=== PATIENT | female | born 1965 | race African-American/Black ===

== ENCOUNTER 2020-05-30 12:48 | Inpatient (IN) | payer OTHER ==
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
[2020-05-30] MEDS ORDERED: MAGNESIUM CITRATE 300 ML BOTTLE PO PRN (15:47)
[2020-05-30] MEDS ORDERED: MAG HYDROX/AL HYDROX/SIMETH 30 ML UNIT-DOSE CUP PO PRN (15:47)
[2020-05-30] MEDS ORDERED: chlordiazePOXIDE HCL 10 MG CAPSULE PO PRN (15:47)
[2020-05-30] MEDS ORDERED: METHOCARBAMOL 500 MG TABLET PO PRN (15:47)
[2020-05-30] MEDS ORDERED: chlordiazePOXIDE HCL 25 MG CAPSULE PO ONE (15:47)
[2020-05-30] MEDS ORDERED: IBUPROFEN 400 MG TABLET (FP) PO PRN (15:47)
[2020-05-30] MEDS ORDERED: BISMUTH SUBSALICYLATE 524 MG/30 ML UD PO PRN (15:47)
[2020-05-30] MEDS ORDERED: MAGNESIUM HYDROX 2400MG/30ML ORAL SUSPENSION 30 ML CUP PO PRN (15:47)
[2020-05-30] MEDS ORDERED: MENTHOL/PHENOL 1 EACH UD MM PRN (15:47)
[2020-05-30] MEDS ORDERED: ACETAMINOPHEN 325 MG TABLET (FP) PO PRN ×2 (15:47)
[2020-05-30] MEDS ORDERED: hydrOXYzine PAMOATE 25 MG CAPSULE (FP) PO PRN (15:47)
[2020-05-30 16:19] VITALS: BMI 25.9
[2020-05-30] MEDS ORDERED: ONDANSETRON *ODT* 4 MG TABLET SL ONE (17:00)
[2020-05-30] MEDS: MELATONIN 5 MG TABLETS PO SCH (21:48)
[2020-05-30] MEDS: THIAMINE HCL 100 MG TABLET (FP) PO SCH (21:48)
[2020-05-30] MEDS: chlordiazePOXIDE HCL 25 MG CAPSULE PO SCH (21:49)
[2020-05-30] MEDS: MICONAZOLE NITRATE 2% VAGINAL CREAM 45 GM TUBE VG SCH (21:53)
[2020-05-31] MEDS: chlordiazePOXIDE HCL 25 MG CAPSULE PO SCH ×3 (05:42→22:20)
[2020-05-31] MEDS ORDERED: MAGNESIUM HYDROX 2400MG/30ML ORAL SUSPENSION 30 ML CUP PO ONE (09:22)
--- NOTE | 2020-05-31 09:40 | PN ---
S CIWA - CIWA Score Nausea/Vomitin-Mild Nausea/No Vomiting Muscle Tremors: 3 Anxiety: 4-Mod. Anxious/Guarded Agitation: 2 Paroxysmal Sweats: No Perspiration Orientation: 0-Oriented Tacttile Disturbances: 0-None Auditory Disturbances: 0-None Visual Disturbances: 2-Mild Sensitivity Headache: 1-Very Mild CIWA-Ar Total Score: 13 BHS Progress Note (SOAP) Subjective: 54 years old female admitted on 05/30/20 for alcohol withdrawal sx management treating with librium detox regiment reports dry itchy eyes denies vision change denies pain no redness on sclera artificial tears for dry eyes report constipation abdomen soft hypoactive bowel sounds no distension no rebound tenderness MOM 30 ml x 1 Colace 100mg po tid ms Florian states that family currently in grieving will be seen by a psychiatrist for seroquela and trazodone ms Florian prefers to leave the detox on 06/02/20 instead of 06/03/20 as estimated discharge date due to mental health appointment in the community with primary care psychiatrist ms Florian determines to maintain sober "I was sad and depressed" ms Florian is grateful for support resources Objective: 05/31/20 09:40 Vital Signs - 24 hr 05/30/20 05/30/20 05/30/20 16:14 17:10 20:34 Temperature 97.9 F 97.7 F 97.1 F L Pulse Rate 61 57 L 58 L Respiratory 18 18 18 Rate Blood Pressure 124/79 130/86 123/82 O2 Sat by Pulse 98 Oximetry (%) 05/31/20 05/31/20 05:26 08:34 Temperature 98.2 F 97.1 F L Pulse Rate 57 L 66 Respiratory 18 18 Rate Blood Pressure 109/78 117/82 O2 Sat by Pulse 98 Oximetry (%) 05/31/20 09:40 lab pending Assessment: 05/31/20 09:40 alcohol withdrawal 05/31/20 09:40 grieving for of family Plan: librium regiment mental health specialist referral
[2020-05-31] MEDS: ARTIFICIAL TEARS (POLYVINYL ALCOHOL) OPTH DROPS OU SCH ×4 (10:11→22:21)
[2020-05-31] MEDS: PRENATAL VITAMINS W/ FOLIC ACID TABLET (FP) PO SCH (10:12)
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
[2020-05-31 11:50] LABS: HEMATOCRIT 36.6 % (32.4-45.2); HEMOGLOBIN 11.8 GM/dL (10.7-15.3); MCH 26.1 pg (25.7-33.7); MCHC 32.2 g/dl (32.0-36.0); MEAN CELL VOLUME 81.1 fl (80-96); MEAN PLT VOLUME 8.4 fl (7.5-11.1); PLATELET COUNT 274 K/MM3 (134-434); RBC 4.52 M/mm3 (3.60-5.2); RDW 15.3 % (11.6-15.6); WHITE BLOOD COUNT 5.8 K/mm3 (4.0-10.0)
[2020-05-31 11:56] LABS: ALBUMIN 3.1 g/dl (3.4-5.0); BILIRUBIN,TOTAL 0.4 mg/dL (0.2-1); BLOOD UREA NITROGEN 15.6 mg/dL (7-18); CREATININE 0.7 mg/dL (0.55-1.3); POTASSIUM 4.5 mmol/L (3.5-5.1); TOT PROT 6.1 g/dl (6.4-8.2)
[2020-05-31] MEDS: DOCUSATE SODIUM 100 MG CAPSULE (FP) PO SCH ×2 (14:25→22:20)
[2020-05-31] MEDS: MELATONIN 5 MG TABLETS PO SCH (22:22)
[2020-05-31] MEDS: THIAMINE HCL 100 MG TABLET (FP) PO SCH (22:22)
[2020-05-31] MEDS: MICONAZOLE NITRATE 2% VAGINAL CREAM 45 GM TUBE VG SCH (22:23)
[2020-06-01] MEDS ORDERED: chlordiazePOXIDE 5 MG CAPSULE PO SCH (05:00)
[2020-06-01] MEDS: chlordiazePOXIDE HCL 10 MG CAPSULE PO SCH ×2 (06:21→17:28)
[2020-06-01] MEDS: DOCUSATE SODIUM 100 MG CAPSULE (FP) PO SCH ×3 (06:21→22:27)
[2020-06-01] MEDS: ARTIFICIAL TEARS (POLYVINYL ALCOHOL) OPTH DROPS OU SCH ×4 (10:30→22:27)
[2020-06-01] MEDS: PRENATAL VITAMINS W/ FOLIC ACID TABLET (FP) PO SCH (10:30)
--- NOTE | 2020-06-01 11:39 | PN ---
S CIWA - CIWA Score Nausea/Vomitin-No Nausea/No Vomiting Muscle Tremors: 2 Anxiety: 2 Agitation: 0-Normal Activity Paroxysmal Sweats: 1-Minimal Palms Moist Orientation: 0-Oriented Tacttile Disturbances: 1-Very Mild Itch/Numbness Auditory Disturbances: 0-None Visual Disturbances: 2-Mild Sensitivity Headache: 0-None Present CIWA-Ar Total Score: 8 BHS Progress Note (SOAP) Subjective: 54 years old female admitted on 05/30/20 for alcohol withdrawal sx management treating with librium detox regiment feeling better today less tremor mild anxiety discussing aftercare with staff that ms estrella will go to her mental health a ppointment and return to patient [facility] admission Objective: 06/01/20 11:37 Vital Signs - 24 hr 05/31/20 05/31/20 05/31/20 12:37 13:52 16:30 Temperature 98.4 F 97.5 F L Pulse Rate 62 72 65 Respiratory 18 18 Rate Blood Pressure 85/56 L 110/81 124/75 O2 Sat by Pulse 95 Oximetry (%) 05/31/20 06/01/20 06/01/20 20:40 06:41 08:36 Temperature 97.7 F 97.7 F 97.1 F L Pulse Rate 65 92 H 84 Respiratory 17 18 18 Rate Blood Pressure 110/74 108/77 91/64 O2 Sat by Pulse 95 96 Oximetry (%) Laboratory Tests 05/30/20 05/30/20 05/31/20 14:14 16:46 08:00 WBC RBC Hgb Hct MCV MCH MCHC RDW Plt Count MPV Sodium Potassium Chloride Carbon Dioxide Anion Gap BUN Creatinine Est GFR (CKD-EPI)AfAm Est GFR (CKD-EPI)NonAf Random Glucose Calcium Total Bilirubin AST ALT Alkaline Phosphatase Total Protein Albumin POC Urine HCG, Qual Negative Syphilis Serology Reactive A* RPR Titer COVID-19 (QUITA) Not detected 05/31/20 05/31/20 05/31/20 08:00 08:00 08:00 WBC 5.8 RBC 4.52 Hgb 11.8 Hct 36.6 MCV 81.1 MCH 26.1 MCHC 32.2 RDW 15.3 Plt Count 274 MPV 8.4 Sodium 140 Potassium 4.5 Chloride 107 Carbon Dioxide 29 Anion Gap 4 L BUN 15.6 Creatinine 0.7 Est GFR (CKD-EPI)AfAm 115.45 Est GFR (CKD-EPI)NonAf 99.62 Random Glucose 84 Calcium 9.0 Total Bilirubin 0.4 AST 16 ALT 16 Alkaline Phosphatase 58 Total Protein 6.1 L Albumin 3.1 L POC Urine HCG, Qual Syphilis Serology RPR Titer Reactive 1:1 H COVID-19 (QUITA) 06/01/20 11:38 lab noted hiv trich gonorr chlym pending Assessment: 06/01/20 11:39 alcohol withdrawal syphilis contact treated Plan: librium regiment std pending
[2020-06-01] MEDS: MICONAZOLE NITRATE 2% VAGINAL CREAM 45 GM TUBE VG SCH (22:27)
[2020-06-01] MEDS: THIAMINE HCL 100 MG TABLET (FP) PO SCH (22:27)
[2020-06-01] MEDS: MELATONIN 5 MG TABLETS PO SCH (22:28)
[2020-06-02] MEDS ORDERED: chlordiazePOXIDE HCL 10 MG CAPSULE PO PRN
[2020-06-02] MEDS ORDERED: chlordiazePOXIDE HCL 10 MG CAPSULE PO SCH (05:00)
[2020-06-02] MEDS ORDERED: chlordiazePOXIDE HCL 10 MG CAPSULE PO ONE (05:00)
[2020-06-02] MEDS: DOCUSATE SODIUM 100 MG CAPSULE (FP) PO SCH (05:31)
[2020-06-02 05:44] VITALS: BP 116/65; PULSE 60; TEMP 97.7
--- NOTE | 2020-06-02 09:08 | DS ---
[facility] Detox Discharge Summary Admission Date: 05/30/20 Discharge Date: 06/02/20 - History Present History: Alcohol Dependence Additional Comments: 54 years old female admitted on 05/30/20 for alcohol withdrawal sx management treating with librium detox regiment feeling better today prefers to leave a day early as estimated discharge date of 06/03/20 ms estrella has appointment tomorrow with her mental health provider and psychotropic medication will be discussed ms estrella determines to maintain sober will follow up with aftercare alert oriented x 3 speech clearly coherently ambulating steady gaits respiratory clear lung sounds bilaterally on auscultation abdomen soft no rebound tenderness extremities full range of motion Pertinent Past History: time for discharge 45 minutes treatment team met with ms estrella to discuss the benefit of librium completion - Physical Exam Results Vital Signs: Vital Signs Temperature 97.7 F 06/02/20 05:43 Pulse Rate 60 06/02/20 05:43 Respiratory Rate 18 06/02/20 05:43 Blood Pressure 116/65 06/02/20 05:43 O2 Sat by Pulse Oximetry (%) 98 06/02/20 05:43 Pertinent Admission Physical Exam Findings: alcohol withdrawal Laboratory Tests 05/30/20 05/30/20 05/31/20 14:14 16:46 08:00 WBC RBC Hgb Hct MCV MCH MCHC RDW Plt Count MPV Sodium Potassium Chloride Carbon Dioxide Anion Gap BUN Creatinine Est GFR (CKD-EPI)AfAm Est GFR (CKD-EPI)NonAf Random Glucose Calcium Total Bilirubin AST ALT Alkaline Phosphatase Total Protein Albumin POC Urine HCG, Qual Negative Syphilis Serology Reactive A* RPR Titer COVID-19 (QUITA) Not detected HIV Ag/Ab Combo Qual 05/31/20 05/31/20 05/31/20 08:00 08:00 08:00 WBC 5.8 RBC 4.52 Hgb 11.8 Hct 36.6 MCV 81.1 MCH 26.1 MCHC 32.2 RDW 15.3 Plt Count 274 MPV 8.4 Sodium 140 Potassium 4.5 Chloride 107 Carbon Dioxide 29 Anion Gap 4 L BUN 15.6 Creatinine 0.7 Est GFR (CKD-EPI)AfAm 115.45 Est GFR (CKD-EPI)NonAf 99.62 Random Glucose 84 Calcium 9.0 Total Bilirubin 0.4 AST 16 ALT 16 Alkaline Phosphatase 58 Total Protein 6.1 L Albumin 3.1 L POC Urine HCG, Qual Syphilis Serology RPR Titer Reactive 1:1 H COVID-19 (QUITA) HIV Ag/Ab Combo Qual 06/01/20 08:00 WBC RBC Hgb Hct MCV MCH MCHC RDW Plt Count MPV Sodium Potassium Chloride Carbon Dioxide Anion Gap BUN Creatinine Est GFR (CKD-EPI)AfAm Est GFR (CKD-EPI)NonAf Random Glucose Calcium Total Bilirubin AST ALT Alkaline Phosphatase Total Protein Albumin POC Urine HCG, Qual Syphilis Serology RPR Titer COVID-19 (QUITA) HIV Ag/Ab Combo Qual Negative lab noted syphilis contacted treated - Treatment Hospital Course: Detox Protocol Followed, Detoxed Safely, Responded well, Discharged Condition Good, Rehab Referral Accepted Patient has Accepted a Re[facility] Referral to: [facility] - Medication Discharge Medications: Ambulatory Orders Cod Liver Oil 1 each PO DAILY 05/30/20 Cyanocobalamin (Vitamin B-12) [Vitamin B-12] 1,000 mcg PO DAILY 05/30/20 Folic Acid - 1 mg PO DAILY 05/30/20 Multivitamins [Multivit ([facility] Formulary)] 1 tab PO DAILY 05/30/20 - Diagnosis (1) Grieving Status: Acute (2) Alcohol dependence with uncomplicated withdrawal Status: Acute (3) Syphilis contact, treated Status: Chronic - AMA Did Patient Leave Against Medical Advice: No CIWA Score - CIWA Score Nausea/Vomitin-No Nausea/No Vomiting Muscle Tremors: 2 Anxiety: 1-Mildly Anxious Agitation: 0-Normal Activity Paroxysmal Sweats: No Perspiration Orientation: 0-Oriented Tacttile Disturbances: 0-None Auditory Disturbances: 0-None Visual Disturbances: 1-Very Mild Sensitivity Headache: 0-None Present CIWA-Ar Total Score: 4
[2020-06-03] MEDS ORDERED: chlordiazePOXIDE HCL 10 MG CAPSULE PO ONE (05:00)
== END 2020-06-02 08:38 | disposition home or self-care (01) | DRG 774 ==
LOC: EDSEX 12:48 → YASAS 12:48 → Y3N 16:42
PROVIDERS: ADMIT Allergy & Immunology; ATTEND Allergy & Immunology
PROC: HZ2ZZZZ Detoxification Services for Substance Abuse Treatment (ICD-10-PCS; principal; 2020-05-30)
DX: F10.230 Alcohol dependence with withdrawal, uncomplicated (principal); F14.20 Cocaine dependence, uncomplicated; F43.21 Adjustment disorder with depressed mood; F43.10 Post-traumatic stress disorder, unspecified; B37.3 Candidiasis of vulva and vagina; K21.9 Gastro-esophageal reflux disease without esophagitis; K59.00 Constipation, unspecified; H04.123 Dry eye syndrome of bilateral lacrimal glands; Z20.2 Contact with and (suspected) exposure to infections with a predominantly sexual mode of transmission; Z63.4 Disappearance and death of family member; Z91.018 Allergy to other foods; Z91.19 Patient's noncompliance with other medical treatment and regimen; Z87.828 Personal history of other (healed) physical injury and trauma; Z98.890 Other specified postprocedural states
CPT/HCPCS: 36415; 80053; 81025; 85027; 86593; 86780; 87389; Q0162; U0003

== ENCOUNTER 2020-07-25 11:21 | Inpatient (IN) | payer OTHER ==
--- OUTSIDE RECORDS SUMMARY | 2020-07-25 11:25 | XMS ---
:1965 Author Organization [facility] Care Team Providers Name Role Phone Jennifer Unavailable MD Tiffanie Unavailable MD Tiffanie Unavailable MD Tiffanie Unavailable MD Tiffanie Unavailable MD Tiffanie Unavailable MD Tiffanie Unavailable MD Tiffanie Unavailable MD Tiffanie Unavailable UZAIR Unavailable Unavailable KUN Unavailable Unavailable Davi Unavailable CORINA (SW DISTANCE EDUCATION COORDINATOR) Unavailable Unavailable Cummings Unavailable Re-disclosure Warning The records that you are about to access may contain information from federally- assisted alcohol or drug abuse programs. If such information is present, then the following federally mandated warning applies: This information has been disclosed to you from records protected by federal confidentiality rules (42 CFR part 2). The federal rules prohibit you from making any further disclosure of this information unless further disclosure is expressly permitted by the written consent of the person to whom it pertains or as otherwise permitted by 42 CFR part 2. A general authorization for the release of medical or other information is NOT sufficient for this purpose. The Federal rules restrict any use of the information to criminally investigate or prosecute any alcohol or drug abuse patient.The records that you are about to access may contain highly sensitive health information, the redisclosure of which is protected by Article 27-F of the [facility] Public Health law. If you continue you may haveaccess to information: Regarding HIV / AIDS; Provided by facilities licensed or operated by the [facility] Office of Mental Health; or Provided by the [facility] Office for People With Developmental Disabilities. If such information is present, then the following [facility] mandated warning applies: This information has been disclosed to you from confidential records which are protected by state law. State law prohibits you from making any further disclosure of this information without the specific written consent of the person to whom it pertains, or as otherwise permitted by law. Any unauthorized further disclosure in violation of state law may result in a fine or group home sentence or both. A general authorization for the release of medical or other information is NOT sufficient authorization for further disclosure. Encounters Encounter Providers Location Date Indications Data Source(s ) Outpatient Attender: Serena 06/04/2020 [facility] 02:52:15 PM [facility] Patient admitted. Outpatient Attender: ANAI TRISTAN 06/02/2020 10:39:17 AM [facility] Patient admitted. Outpatient Attender: Mary 02/25/2020 01:08:55 PM [facility] Patient admitted. Outpatient Attender: Mary 02/23/2020 04:29:05 PM [facility] Patient admitted. Outpatient Attender: ROSALIO ARRIAGA 11/08/2018 02:15:12 PM [facility] Outpatient Attender: Lia 09/27/2018 06:47:23 PM The [facility] Outpatient Attender: ROSALIO ARRIAGA 09/22/2018 10:03:08 AM [facility] Outpatient Attender: Lia 08/14/2018 11:20:29 AM [facility] Outpatient Attender: Elma Cummings 08/14/2018 11:06:27 AM [facility] Outpatient Attender: Elma Cummings 08/07/2018 11:00:43 AM [facility] Outpatient Attender: Lia 07/23/2018 04:56:34 PM [facility] Outpatient Attender: Lia 07/19/2018 06:35:52 PM [facility] Outpatient Attender: Lia 07/19/2018 12:00:00 AM [facility] Outpatient Attender: Lia 07/14/2018 12:00:00 AM [facility] Outpatient Attender: CHAN DUNNE 07/05/2018 06:46:38 PM [facility] Medications Medication Brand Start Product Dose Route [facility] Indications Reaction Description Data Name Date Form Instructions Instructions Source(s) quetiapine QUEtia 50 mg Oral active PTSD Take ON E The 50 MG Oral pine 2018 (post-trauma tablet (50 [place] Tablet Fumara 12:00: tic stress mg total ) by For Family QUEtiapine te 00 AM disorder) mouth [facility] Fumarate (SEROQ EDT 1 tab daily (SEROQUEL) UEL) and 2 tabs 50 MG Oral 50 MG nightly Tab Oral Tab PTSD (post-traumatic stress disorder) Take ONE tablet (50 mg total) by mouth d aily 1 tab daily and 2 tabs nightly Trazodone traZODone 07/23/2018 100 Oral active PTSD Ta ke ONE The Hydrochloride 100 MG 12:00:00 AM mg (post-trauma tic tablet [place] 100 MG Oral Oral EDT stress disorder) ( 100 mg For Family Tablet tablet total) Health traZODone 100 by mouth MG Oral tablet nightly PTSD (post-traumatic stress disorder) quetiapine QUEtiapine 07/23/2018 100 Oral active PTSD Take ONE The 100 MG Oral Fumarate 12:00:00 AM mg (post-trauma tic tablet [place] Tablet (SEROQUEL) EDT stress disorder) (100 mg For Family QUEtiapine 100 MG Oral total) Health Fumarate Tab by mouth (SEROQUEL) nightly 100 MG Oral Tab PTSD (post-traumatic stress disorder) Take ONE tablet (100 mg total) by mouth nightly Trazodone traZODone 04/14/2018 100 Oral aborted PTSD T ryan ONE The Hydrochloride 100 MG 12:00:00 AM mg (post-trauma tic tablet [place] 100 MG Oral Oral EDT stress disorder) ( 100 mg For Family Tablet tablet total) Health traZODone 100 by mouth MG Oral tablet nightly PTSD (post-traumatic stress disorder) quetiapine QUEtiapine 04/14/2018 100 Oral active PTSD Take ONE The 100 MG Oral Fumarate 12:00:00 AM mg (post-trauma tic tablet [place] Tablet (SEROQUEL) EDT stress disorder) (100 mg For Family QUEtiapine 100 MG Oral total) Health Fumarate Tab by mouth (SEROQUEL) nightly 100 MG Oral Tab PTSD (post-traumatic stress disorder) quetiapine QUEtiapine 04/14/2018 50 Oral active PTSD Take ONE The 50 MG Oral Fumarate 12:00:00 AM mg (post-traumat ic tablet [place] Tablet (SEROQUEL) EDT stress disorder) (50 mg For Family QUEtiapine 50 MG Oral total) H ealth Fumarate Tab by mouth (SEROQUEL) daily 1 50 MG Oral tab Tab daily and 2 tabs nightly PTSD (post-traumatic stress disorder) Insurance Providers Payer name Policy type Policy ID Covered Covered democrat's Policy P estiven / Coverage democrat ID relationship to Mota Inf ormation type mota [employer] [id number] SP [id number] C [employer] Medicaid Mgd 156 156 Care SELF PAY/NO [id number] Self [id number] [place] MEDICAID [place] [id number] Self [id number] [employer] [id number] Self [id number] [employer] Medicaid Mgd 156 156 Care Problems, Conditions, and Diagnoses Code Display Name Description Problem Type Effective Data Sour ce(s) Dates F10.20 Alcohol use Alcohol use [id number] 04/16/2016 The [facility] e disorder, moderate disorder, 12:00:00 AM For F amily moderate EDT Health F43.10 PTSD PTSD [id number] 04/21/2015 The [place] (post-traumatic (post-traumatic 12:00:00 AM For Family stress disorder) stress disorder) EDT He alth Z11.59 Encounter for Encounter for Diagnosis 06/04/2020 The [facility] [employer] screening for screening for 02:52:15 PM For Fam [facility] other viral other viral EDT Health diseases diseases Transitional Care Transitional Care Diagnosis 06/02/2020 The [place] Management Management 10:39:17 AM For Family Outreach Outreach EDT Health RAP Attempted RAP Attempted Diagnosis 02/25/2020 The [employer] Outreach Outreach 01:08:55 PM For Family EDT Health Outreach Outreach Diagnosis 02/23/2020 The [place] 04:29:05 PM For Family EDT Health 973 Case Closure Case Closure Diagnosis 11/08/2018 [facility] Follow Up Follow Up 02:15:12 PM For Family EST Health 1277 Call During Clinic Call During Diagnosis 09/27/2018 The I [facility]stitute Hours Clinic Hours 06:47:23 PM For Family EST Health 1251 Reschedule Reschedule Diagnosis 09/22/2018 The [place] Appointment Appointment 10:03:08 AM For Family EST Health 476 Transfer Note Transfer Note Diagnosis 08/14/2018 The Inst itute 11:20:29 AM For Family EDT Health 460 Outreach Outreach Diagnosis 07/19/2018 The [place] 06:35:52 PM For Family EDT Health 41 Emergency Room Emergency Room Diagnosis 07/05/2018 The In stitute Visit Follow Up Visit Follow Up 06:46:38 PM For Family EDT Health F43.10 Post-traumatic Post-traumatic Diagnosis 04/21/2015 The [facility] stress disorder, stress disorder, 06:41:11 PM F or Family unspecified unspecified EDT Health 309.81 POSTTRAUMATIC PTSD Diagnosis The [facility] STRESS DISORDER (post-traumatic For Family stress disorder) Health 309.81 POSTTRAUMATIC PTSD Diagnosis The [facility] STRESS DISORDER (post-traumatic For Family stress disorder) Health 309.81 POSTTRAUMATIC PTSD Diagnosis The [facility] STRESS DISORDER (post-traumatic For Family stress disorder) Health 309.81 POSTTRAUMATIC PTSD Diagnosis The [facility] STRESS DISORDER (post-traumatic For Family stress disorder) Health [id number] PTSD Diagnosis The [place] (post-traumatic For Famil y stress disorder) Health [id number] PTSD Diagnosis The [place] (post-traumatic For Famil y stress disorder) Health Surgeries/Procedures Procedure Description Date Indications Data Source(s) NOVEL CORONAVIRUS NOVEL CORONAVIRUS Routine 05/30/2020 0 05/30/2020 The COVID-19 COVID-19 12:00:00 AM In stitute NASOPHARYNGEAL NASOPHARYNGEAL EDT For Family Health NOVEL CORONAVIRUS COVID-19 NOVEL CORONAVIRUS COVID-19 The [place] For NASOPHARYNGEAL NASOPHARYNGEAL Family Heal th Results ID Date Data Source [id number] 05/30/2020 04:46:00 PM EDT [facility] Name Value Range Interpretation Description Data Sup porting Code Source(s) Document(s ) SARS [facility] coronavirus 2 RNA This lab was ordered by [facility] and reported by [facility]. Procedure Social History Code Duration Value Status Description Data Source(s ) Alcohol intake 04/12/2016 Not Asked completed The [facility] For 12:00:00 AM EDT Family He alth Smoking 04/12/2016 Never smoker completed Never smoker [facility] For 12:00:00 AM EDT Family He alth Tobacco smoking 04/12/2016 Never smoker completed Never smoker The nstitute For status NHIS 12:00:00 AM EDT Family H ealth Sex assigned at Female Female The [facility] Exposure to No / Unsure In the last month, No / Unsure The [place] For SARS-CoV-2 (event) have you been in Family Health contact with someone who was confirmed or suspected to have Coronavirus / COVID-19? Sex assigned at Female Female The [facility] Patient Treatment Plan of Care Planned Activity Planned Date Details Description Data Source (s) quetiapine 50 MG Oral 07/23/2018 12:00:00 The [place] For Tablet AM [facility] quetiapine 100 MG Oral 07/23/2018 12:00:00 [facility] Tablet AM [facility] Trazodone Hydrochloride 07/23/2018 12:00:00 The [place] For 100 MG Oral Tablet AM [facility] Family He alth quetiapine 50 MG Oral 04/14/2018 12:00:00 The [place] For Tablet AM [facility] quetiapine 100 MG Oral 04/14/2018 12:00:00 The [place] For Tablet AM [facility] Trazodone Hydrochloride 04/14/2018 12:00:00 The [place] For 100 MG Oral Tablet AM EDT Family He alth
--- NOTE | 2020-07-25 12:16 | BHS.RME ---
Substance Use & Tx History - Substance Use History Alcohol Substance amount: 2 6 packs of beer, 1 L liqour Frequency of use: Daily Substance route: Oral Date of Last Use: 07/24/20 - Last Treatment Date of last treatment: 05/30/2020 Where was last treatment: Detox Physical/Psych/Mental Status - Behavior General Behavior: Increased activity (restlessness, agitation) Eye Contact: Excessive Other Behaviors: Mannerisms - Cooperativeness Cooperativeness: Cooperative - Thinking Thought Processes: Tight Thought content: Future oriented - Physical Health Problems Is patient presently having any pain?: Yes (back and leg) Does patient presently have any injuries (include location): No Does patient currently have a fever: No CIWA Nausea/Vomitin-Mild Nausea/No Vomiting Muscle Tremors: 2 Anxiety: 2 Agitation: 2 Paroxysmal Sweats: 2 Orientation: 0-Oriented Tacttile Disturbances: 1-Very Mild Itch/Numbness Auditory Disturbances: 0-None Visual Disturbances: 0-None Headache: 3-Moderate CIWA-Ar Total Score: 13
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
[2020-07-25] MEDS ORDERED: ONDANSETRON *ODT* 4 MG TABLET SL PRN (13:19)
[2020-07-25] MEDS ORDERED: BISMUTH SUBSALICYLATE 524 MG/30 ML UD PO PRN (13:19)
[2020-07-25] MEDS ORDERED: IBUPROFEN 400 MG TABLET (FP) PO PRN (13:19)
[2020-07-25] MEDS ORDERED: ACETAMINOPHEN 325 MG TABLET (FP) PO PRN ×2 (13:19)
[2020-07-25] MEDS ORDERED: chlordiazePOXIDE HCL 25 MG CAPSULE PO PRN (13:19)
[2020-07-25] MEDS ORDERED: hydrOXYzine PAMOATE 25 MG CAPSULE (FP) PO PRN (13:19)
[2020-07-25] MEDS ORDERED: METHOCARBAMOL 500 MG TABLET PO PRN (13:19)
[2020-07-25] MEDS ORDERED: MENTHOL/PHENOL 1 EACH UD MM PRN (13:19)
[2020-07-25] MEDS ORDERED: MAGNESIUM HYDROX 2400MG/30ML ORAL SUSPENSION 30 ML CUP PO PRN (13:19)
[2020-07-25] MEDS ORDERED: MAGNESIUM CITRATE 300 ML BOTTLE PO PRN (13:19)
--- OUTSIDE RECORDS SUMMARY | 2020-07-25 13:48 | XMS ---
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 If you continue you may haveaccess to information: Regarding HIV / AIDS; Provided by facilities licensed or operated by the [facility] Office of Mental Health; or Provided by the [facility] Office for People With Developmental Disabilities. If such information is present, then the following [facility] mandated warning applies: This information has [...] law may result in a fine or half-way sentence or both. A general authorization for the release of medical or other information is NOT sufficient authorization for further disclosure. Encounters Encounter Providers Location Date Indications Data Source(s ) Outpatient Attender: Serena 06/04/2020 The [facility] 02:52:15 PM [facility] Patient admitted. Outpatient Attender: ANAI TRISTAN 06/02/2020 10:39:[address] [facility] Patient admitted. Outpatient Attender: Mary 02/25/2020 01:08:55 PM The [facility] Patient admitted. Outpatient Attender: Mary 02/23/2020 04:29:05 PM The [facility] Patient admitted. Outpatient Attender: ROSALIO ARRIAGA 11/08/2018 02:15:12 PM The [facility] Outpatient Attender: Lia 09/27/2018 06:47:23 PM The [facility]ated [facility] Outpatient Attender: ROSALIO ARRIAGA 09/22/2018 10:03:08 AM The [facility] Outpatient Attender: Lia 08/14/2018 11:20:29 AM The [facility] Outpatient Attender: Elma Cummings 08/14/2018 11:06:[address] [facility] Outpatient Attender: Elma Cummings 08/07/2018 11:00:[address] [facility] Outpatient Attender: Lia 07/23/2018 04:56:34 PM The [facility] Outpatient Attender: Lia 07/19/2018 06:35:52 PM The [facility] Outpatient Attender: Lia 07/19/2018 12:00:00 AM The [facility] Outpatient Attender: Lia 07/14/2018 12:00:00 AM The [facility] Outpatient Attender: CHAN DUNNE 07/05/2018 06:46:[address] [facility] Medications Medication Brand Start Product Dose Route Administrative Pharmacy [facility] Indications Reaction Description Data Name Date Form Instructions Instructions Source(s) quetiapine QUEtia 50 mg Oral active PTSD Take ON E The 50 MG Oral pine 2018 (post-trauma tablet (50 [place] Tablet Fumara 12:00: tic stress mg total [...] MG 12:00:00 AM mg (post-trauma tic tablet [place] 100 MG Oral Oral EDT stress disorder) ( 100 mg For Family Tablet tablet total) Health traZODone 100 by mouth MG Oral tablet nightly PTSD (post-traumatic stress disorder) quetiapine QUEtiapine 07/23/2018 100 Oral active PTSD Take ONE The 100 MG Oral Fumarate 12:00:00 AM mg (post-trauma tic tablet [place] Tablet (SEROQUEL) EDT stress disorder) (100 mg For Family QUEtiapine 100 MG Oral total) Health Fumarate Tab by mouth (SEROQUEL) nightly 100 MG Oral Tab PTSD (post-traumatic stress disorder) Take ONE tablet (100 mg total) by mouth nightly Trazodone traZODone 04/14/2018 100 Oral aborted PTSD T ryan ONE The Hydrochloride 100 MG 12:00:00 AM mg (post-trauma tic tablet [place] 100 MG Oral Oral EDT stress disorder) ( 100 mg For Family Tablet tablet total) Health traZODone 100 by mouth MG Oral tablet nightly PTSD (post-traumatic stress disorder) quetiapine QUEtiapine 04/14/2018 100 Oral active PTSD Take ONE The 100 MG Oral Fumarate 12:00:00 AM mg (post-trauma tic tablet [place] Tablet (SEROQUEL) EDT stress disorder) (100 mg For Family QUEtiapine 100 MG Oral total) Health Fumarate Tab by mouth (SEROQUEL) nightly 100 MG Oral Tab PTSD (post-traumatic stress disorder) quetiapine QUEtiapine 04/14/2018 50 Oral active PTSD Take ONE The 50 MG Oral Fumarate 12:00:00 AM mg (post-traumat ic tablet [place] Tablet (SEROQUEL) EDT stress disorder) (50 mg For Family QUEtiapine 50 MG Oral total) H ealth Fumarate Tab by mouth (SEROQUEL) daily 1 50 MG Oral tab Tab daily and 2 tabs nightly PTSD (post-traumatic stress disorder) Insurance Providers Payer name Policy type Policy ID Covered Covered libertarian's Policy P estiven / Coverage libertarian ID relationship to Mota Inf ormation type mota [employer] [id number] SP [id number] C [employer] Medicaid Mgd 156 156 Care SELF PAY/NO [id number] Self [id number] SLIDE MEDICAID [place] [id number] Self [id number] [employer] [id number] Self [id number] [employer] Medicaid Mgd 156 156 Care Problems, Conditions, and Diagnoses Code Display Name Description Problem Type Effective Data Sour ce(s) Dates F10.20 Alcohol use Alcohol use [id number] 04/16/2016 The [facility] e disorder, moderate disorder, 12:00:00 AM For F amily moderate EDT Health F43.10 PTSD PTSD [id number] 04/21/2015 The [place] (post-traumatic (post-traumatic 12:00:00 AM For Family stress disorder) stress disorder) EDT He alth Z11.59 Encounter for Encounter for Diagnosis 06/04/2020 The [facility] [employer] screening for screening for 02:52:15 PM For Fam bernabe other viral other viral EDT Health diseases diseases Transitional Care Transitional Care Diagnosis 06/02/2020 The [place] Management Management 10:39:17 AM For Family Outreach Outreach EDT Health RAP Attempted RAP Attempted Diagnosis 02/25/2020 The [employer] Outreach Outreach 01:08:55 PM For Family EDT Health Outreach Outreach Diagnosis 02/23/2020 The [place] 04:29:05 PM For Family EDT Health 973 Case Closure Case Closure Diagnosis 11/08/2018 The [facility] Follow Up Follow Up 02:15:12 PM For Family EST Health 1277 Call During Clinic Call During Diagnosis 09/27/2018 The I nstitute Hours Clinic Hours 06:47:23 PM For Family EST Health 1251 Reschedule Reschedule Diagnosis 09/22/2018 The [place] Appointment Appointment 10:03:08 AM For Family EST Health 476 Transfer Note Transfer Note Diagnosis 08/14/2018 The Inst itute 11:20:29 AM For Family EDT Health 460 Outreach Outreach Diagnosis 07/19/2018 The [place] 06:35:52 PM For Family EDT Health 41 Emergency Room Emergency Room Diagnosis 07/05/2018 The In stitute Visit Follow Up Visit Follow Up 06:46:38 PM For Family EDT Health F43.10 Post-traumatic Post-traumatic Diagnosis 04/21/2015 The [facility] stress disorder, stress disorder, 06:41:11 PM F [...] DISORDER (post-traumatic For Family stress disorder) Health [id number] PTSD Diagnosis The [place] (post-traumatic For Famil y stress disorder) Health [id number] PTSD Diagnosis The [place] (post-traumatic For Famil y stress disorder) Health Surgeries/Procedures Procedure Description Date Indications Data Source(s) NOVEL CORONAVIRUS NOVEL CORONAVIRUS Routine 05/30/2020 0 05/30/2020 The COVID-19 COVID-19 12:00:00 AM In stitute NASOPHARYNGEAL NASOPHARYNGEAL EDT For Family Health NOVEL CORONAVIRUS COVID-19 NOVEL CORONAVIRUS COVID-19 The [place] For NASOPHARYNGEAL NASOPHARYNGEAL Family Heal th Results ID Date Data Source [id number] 05/30/2020 04:46:00 PM EDT [facility] Name Value Range Interpretation Description Data Sup porting Code Source(s) Document(s ) SARS [facility] coronavirus 2 RNA This lab was ordered by [facility] and reported by [facility]. Procedure Social History Code Duration Value Status Description Data Source(s ) Alcohol intake 04/12/2016 Not Asked completed The [facility] For 12:00:00 AM EDT Family He alth Smoking 04/12/2016 Never smoker completed Never smoker The [facility] For 12:00:00 AM EDT Family He alth Tobacco smoking 04/12/2016 Never smoker completed Never smoker The nstitute For status NHIS 12:00:00 AM EDT Family H ealth Sex assigned at Female Female The [facility] Exposure to No / Unsure In the last month, No / Unsure The [place] For SARS-CoV-2 (event) have you been in Family Health contact with someone who was confirmed or suspected to have Coronavirus / COVID-19? Sex assigned at Female Female The [facility] Patient Treatment Plan of Care Planned Activity Planned Date Details Description Data Source (s) quetiapine 50 MG Oral 07/23/2018 12:00:00 The [place] For Tablet AM [facility] quetiapine 100 MG Oral 07/23/2018 12:00:00 [facility] Tablet AM [facility] Trazodone Hydrochloride 07/23/2018 12:00:00 The [place] For 100 MG Oral Tablet AM [facility] Family He alth quetiapine 50 MG Oral 04/14/2018 12:00:00 The [place] For Tablet AM [facility] quetiapine 100 MG Oral 04/14/2018 12:00:00 The [place] For Tablet AM [facility] Trazodone Hydrochloride 04/14/2018 12:00:00 The [place] For 100 MG Oral Tablet AM EDT Family He alth
[2020-07-25 13:53] VITALS: BMI 25.9
[2020-07-25] MEDS: chlordiazePOXIDE HCL 25 MG CAPSULE PO SCH ×2 (17:29→22:11)
--- NOTE | 2020-07-25 17:36 | PN ---
[facility] Progress Note Note: pt c/o vaginal d/c , foul- smelling P : Monistat
[2020-07-25] MEDS ORDERED: FLUCONAZOLE 150 MG TABLET PO ONE (18:30)
[2020-07-25] MEDS: THIAMINE HCL 100 MG TABLET (FP) PO SCH (22:10)
[2020-07-25] MEDS: MELATONIN 5 MG TABLETS PO SCH (22:10)
[2020-07-25] MEDS: MICONAZOLE NITRATE 2% VAGINAL CREAM 45 GM TUBE VG SCH (22:11)
[2020-07-26] MEDS: chlordiazePOXIDE HCL 25 MG CAPSULE PO SCH ×4 (05:35→22:38)
[2020-07-26] MEDS: PRENATAL VITAMINS W/ FOLIC ACID TABLET (FP) PO SCH (10:17)
--- NOTE | 2020-07-26 12:01 | PN ---
S CIWA - CIWA Score Nausea/Vomitin-No Nausea/No Vomiting Muscle Tremors: 2 Anxiety: 2 Agitation: 1-Slight > Activity Paroxysmal Sweats: No Perspiration Orientation: 0-Oriented Tacttile Disturbances: 0-None Auditory Disturbances: 0-None Visual Disturbances: 2-Mild Sensitivity Headache: 1-Very Mild CIWA-Ar Total Score: 8 [facility] Progress Note (SOAP) Subjective: 54 years old female was admitted on 07/25/20 for alcohol withdrawal sx management treating with librium detox regiment ms estrella requests givicente gingle nabil yogurt pediatric ophthalmologist referral hiv testing hepatitic b and c testing trich gonorr chlamy testing blood will be drawn tomorrow Objective: 07/26/20 12:22 Vital Signs - 24 hr 07/25/20 07/25/20 07/25/20 13:51 13:53 14:25 Temperature 96.1 F L 96.1 F L 97.3 F L Pulse Rate 65 65 62 Respiratory 19 19 18 Rate Blood Pressure 129/80 129/80 146/88 O2 Sat by Pulse 100 Oximetry (%) 07/25/20 07/25/20 07/26/20 17:00 20:45 05:23 Temperature 98.0 F 97.4 F L 97.7 F Pulse Rate 76 71 57 L Respiratory 18 18 20 Rate Blood Pressure 120/82 109/72 97/60 O2 Sat by Pulse 100 99 Oximetry (%) 07/26/20 08:40 Temperature 97.1 F L Pulse Rate 65 Respiratory 18 Rate Blood Pressure 115/79 O2 Sat by Pulse Oximetry (%) Laboratory Tests 07/25/20 14:57 POC Urine HCG, Qual Negative 07/26/20 12:22 lab pending Assessment: 07/26/20 12:23 alcohol withdrawal Plan: librium regiment
[2020-07-26 12:22] LABS: HEMATOCRIT 38.8 % (32.4-45.2); HEMOGLOBIN 12.6 GM/dL (10.7-15.3); MCH 26.3 pg (25.7-33.7); MCHC 32.6 g/dl (32.0-36.0); MEAN CELL VOLUME 80.8 fl (80-96); MEAN PLT VOLUME 8.3 fl (7.5-11.1); PLATELET COUNT 336 K/MM3 (134-434); RDW 14.9 % (11.6-15.6); WHITE BLOOD COUNT 5.8 K/mm3 (4.0-10.0)
[2020-07-26 12:54] LABS: ALBUMIN 3.5 g/dl (3.4-5.0); BILIRUBIN,TOTAL 0.5 mg/dL (0.2-1); BLOOD UREA NITROGEN 12.3 mg/dL (7-18); CREATININE 0.8 mg/dL (0.55-1.3); POTASSIUM 4.3 mmol/L (3.5-5.1); TOT PROT 6.8 g/dl (6.4-8.2)
[2020-07-26] MEDS: THIAMINE HCL 100 MG TABLET (FP) PO SCH (22:38)
[2020-07-26] MEDS: MELATONIN 5 MG TABLETS PO SCH (22:38)
[2020-07-26] MEDS: MICONAZOLE NITRATE 2% VAGINAL CREAM 45 GM TUBE VG SCH (22:40)
[2020-07-27] MEDS: chlordiazePOXIDE HCL 25 MG CAPSULE PO SCH ×4 (06:45→22:35)
[2020-07-27] MEDS: PRENATAL VITAMINS W/ FOLIC ACID TABLET (FP) PO SCH (10:13)
--- NOTE | 2020-07-27 10:19 | PN ---
[facility] CI[facility] - CIWA Score Nausea/Vomitin-Mild Nausea/No Vomiting Muscle Tremors: 1-None Visible, but [place] Anxiety: 1-Mildly Anxious Agitation: 1-Slight > Activity Paroxysmal Sweats: 1-Minimal Palms Moist Orientation: 0-Oriented Tacttile Disturbances: 1-Very Mild Itch/Numbness Auditory Disturbances: 0-None Visual Disturbances: 1-Very Mild Sensitivity Headache: 0-None Present CIWA-Ar Total Score: 7 [facility] Progress Note (SOAP) Subjective: 54 years old female was admitted on 07/25/20 for alcohol withdrawal sx management treating with librium detox regiment requested std serum result pending Objective: 07/27/20 10:16 Vital Signs - 24 hr 07/26/20 07/26/20 07/26/20 12:38 17:02 20:34 Temperature 96.8 F L 97.5 F L 96.6 F L Pulse Rate 83 70 75 Respiratory 18 17 17 Rate Blood Pressure 114/78 113/77 121/89 O2 Sat by Pulse 100 100 Oximetry (%) 07/27/20 08:34 Temperature 97.3 F L Pulse Rate 77 Respiratory 18 Rate Blood Pressure 106/71 O2 Sat by Pulse Oximetry (%) Laboratory Tests 07/25/20 07/25/20 07/25/20 08:30 08:30 14:57 WBC RBC Hgb Hct MCV MCH MCHC RDW Plt Count MPV Sodium Potassium Chloride Carbon Dioxide Anion Gap BUN Creatinine Est GFR (CKD-EPI)AfAm Est GFR (CKD-EPI)NonAf Random Glucose Calcium Total Bilirubin AST ALT Alkaline Phosphatase Total Protein Albumin POC Urine HCG, Qual Negative Syphilis Serology Reactive A* RPR Titer Reactive 1:1 H 07/26/20 07/26/20 08:30 08:30 WBC 5.8 RBC 4.80 Hgb 12.6 Hct 38.8 MCV 80.8 MCH 26.3 MCHC 32.6 RDW 14.9 Plt Count 336 D MPV 8.3 Sodium 142 Potassium 4.3 Chloride 110 H Carbon Dioxide 25 Anion Gap 7 L BUN 12.3 Creatinine 0.8 Est GFR (CKD-EPI)AfAm 98.24 Est GFR (CKD-EPI)NonAf 84.76 Random Glucose 82 Calcium 9.0 Total Bilirubin 0.5 AST 24 ALT 23 Alkaline Phosphatase 63 Total Protein 6.8 Albumin 3.5 POC Urine HCG, Qual Syphilis Serology RPR Titer std serum pending Assessment: 07/27/20 10:19 alcohol withdrawal Plan: librium regiment
[2020-07-27] MEDS: DOCUSATE SODIUM 100 MG CAPSULE (FP) PO SCH ×2 (17:15→22:36)
[2020-07-27] MEDS: THIAMINE HCL 100 MG TABLET (FP) PO SCH (22:35)
[2020-07-27] MEDS: MELATONIN 5 MG TABLETS PO SCH (22:35)
[2020-07-27] MEDS: MICONAZOLE NITRATE 2% VAGINAL CREAM 45 GM TUBE VG SCH (22:36)
[2020-07-27] MEDS: MAG HYDROX/AL HYDROX/SIMETH 30 ML UNIT-DOSE CUP PO PRN (23:08)
[2020-07-28] MEDS ORDERED: chlordiazePOXIDE HCL 10 MG CAPSULE PO PRN
[2020-07-28] MEDS: chlordiazePOXIDE HCL 10 MG CAPSULE PO SCH ×4 (05:52→22:02)
[2020-07-28] MEDS: DOCUSATE SODIUM 100 MG CAPSULE (FP) PO SCH ×3 (05:54→22:03)
[2020-07-28] MEDS: PRENATAL VITAMINS W/ FOLIC ACID TABLET (FP) PO SCH (11:00)
--- NOTE | 2020-07-28 13:08 | PN ---
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 articulate sobriety coping and focus on employment Objective: 07/28/20 13:08 Vital Signs - 24 hr 07/27/20 07/27/20 07/28/20 16:51 20:30 06:32 Temperature 97.8 F 97.7 F 97.8 F Pulse Rate 88 80 76 Respiratory 18 18 16 Rate Blood Pressure 114/88 110/74 107/78 O2 Sat by Pulse 98 96 Oximetry (%) 07/28/20 07/28/20 08:35 13:07 Temperature 96.9 F L 96.8 F L Pulse Rate 88 98 H Respiratory 18 18 Rate Blood Pressure 111/84 122/71 O2 Sat by Pulse 96 98 Oximetry (%) Laboratory Tests 07/25/20 07/25/20 07/25/20 08:30 08:30 14:57 WBC RBC Hgb Hct MCV MCH MCHC RDW Plt Count MPV Sodium Potassium Chloride Carbon Dioxide Anion Gap BUN Creatinine Est GFR (CKD-EPI)AfAm Est GFR (CKD-EPI)NonAf Random Glucose Calcium Total Bilirubin AST ALT Alkaline Phosphatase Total Protein Albumin POC Urine HCG, Qual Negative Syphilis Serology Reactive A* RPR Titer Reactive 1:1 H Hep C Ab Diagnostic HIV Ag/Ab Combo Qual 07/26/20 07/26/20 07/27/20 08:30 08:30 08:00 WBC 5.8 RBC 4.80 Hgb 12.6 Hct 38.8 MCV 80.8 MCH 26.3 MCHC 32.6 RDW 14.9 Plt Count 336 D MPV 8.3 Sodium 142 Potassium 4.3 Chloride 110 H Carbon Dioxide 25 Anion Gap 7 L BUN 12.3 Creatinine 0.8 Est GFR (CKD-EPI)AfAm 98.24 Est GFR (CKD-EPI)NonAf 84.76 Random Glucose 82 Calcium 9.0 Total Bilirubin 0.5 AST 24 ALT 23 Alkaline Phosphatase 63 Total Protein 6.8 Albumin 3.5 POC Urine HCG, Qual Syphilis Serology RPR Titer Hep C Ab Diagnostic <0.1 HIV Ag/Ab Combo Qual 07/27/20 08:00 WBC RBC Hgb Hct MCV MCH MCHC RDW Plt Count MPV Sodium Potassium Chloride Carbon Dioxide Anion Gap BUN Creatinine Est GFR (CKD-EPI)AfAm Est GFR (CKD-EPI)NonAf Random Glucose Calcium Total Bilirubin AST ALT Alkaline Phosphatase Total Protein Albumin POC Urine HCG, Qual Syphilis Serology RPR Titer Hep C Ab Diagnostic HIV Ag/Ab Combo Qual Negative 07/28/20 13:09 covid pending syphilis contacted treated 07/28/20 13:10 Assessment: 07/28/20 13:10 alcohol withdrawal Plan: librium regiment
[2020-07-28] MEDS ORDERED: COLLOIDAL OATMEAL 1 BAR EACH TP PRN (20:19)
[2020-07-28] MEDS: MAG HYDROX/AL HYDROX/SIMETH 30 ML UNIT-DOSE CUP PO PRN (20:43)
[2020-07-28] MEDS: MELATONIN 5 MG TABLETS PO SCH (22:03)
[2020-07-28] MEDS: THIAMINE HCL 100 MG TABLET (FP) PO SCH (22:06)
[2020-07-28] MEDS: MICONAZOLE NITRATE 2% VAGINAL CREAM 45 GM TUBE VG SCH (22:06)
[2020-07-29] MEDS: DOCUSATE SODIUM 100 MG CAPSULE (FP) PO SCH ×2 (06:06→13:50)
[2020-07-29] MEDS: chlordiazePOXIDE HCL 10 MG CAPSULE PO SCH ×2 (06:06→18:30)
[2020-07-29 09:09] VITALS: TEMP 97.7
[2020-07-29] MEDS: PRENATAL VITAMINS W/ FOLIC ACID TABLET (FP) PO SCH (10:10)
[2020-07-29] MEDS ORDERED: BETAMETHASONE DIPR 0.05% OINT 45 GM TUBE TP SCH (11:15)
--- NOTE | 2020-07-29 11:16 | PN ---
S CIWA - CIWA Score Nausea/Vomitin-No Nausea/No Vomiting Muscle Tremors: 1-None Visible, but [place] Anxiety: 1-Mildly Anxious Agitation: 1-Slight > Activity Paroxysmal Sweats: No Perspiration Orientation: 0-Oriented Tacttile Disturbances: 1-Very Mild Itch/Numbness Auditory Disturbances: 0-None Visual Disturbances: 0-None Headache: 1-Very Mild CIWA-Ar Total Score: 5 [facility]HS Progress Note (SOAP) Subjective: alert,irritable,anxious,interrupted sleep,aching pain,chronic rash body,extremities,eczema,on topical ointment Objective: 07/29/20 17:22 Vital Signs Temperature 97.7 F 07/29/20 12:31 Pulse Rate 75 07/29/20 12:31 Respiratory Rate 18 07/29/20 12:31 Blood Pressure 120/64 07/29/20 12:31 O2 Sat by Pulse Oximetry (%) 98 07/29/20 12:31 07/29/20 17:23 Laboratory Last Values WBC 5.8 K/mm3 (4.0-10.0) 07/26/20 08:30 RBC 4.80 M/mm3 (3.60-5.2) 07/26/20 08:30 Hgb 12.6 GM/dL (10.7-15.3) 07/26/20 08:30 Hct 38.8 % (32.4-45.2) 07/26/20 08:30 MCV 80.8 fl (80-96) 07/26/20 08:30 MCH 26.3 pg (25.7-33.7) 07/26/20 08:30 MCHC 32.6 g/dl (32.0-36.0) 07/26/20 08:30 RDW 14.9 % (11.6-15.6) 07/26/20 08:30 Plt Count 336 K/MM3 (134-434) D 07/26/20 08:30 MPV 8.3 fl (7.5-11.1) 07/26/20 08:30 Sodium 142 mmol/L (136-145) 07/26/20 08:30 Potassium 4.3 mmol/L (3.5-5.1) 07/26/20 08:30 Chloride 110 mmol/L (98-107) H 07/26/20 08:30 Carbon Dioxide 25 mmol/L (21-32) 07/26/20 08:30 Anion Gap 7 MMOL/L (8-16) L 07/26/20 08:30 BUN 12.3 mg/dL (7-18) 07/26/20 08:30 Creatinine 0.8 mg/dL (0.55-1.3) 07/26/20 08:30 Est GFR (CKD-EPI)AfAm 98.24 07/26/20 08:30 Est GFR (CKD-EPI)NonAf 84.76 07/26/20 08:30 Random Glucose 82 mg/dL (74-106) 07/26/20 08:30 Calcium 9.0 mg/dL (8.5-10.1) 07/26/20 08:30 Total Bilirubin 0.5 mg/dL (0.2-1) 07/26/20 08:30 AST 24 U/L (15-37) 07/26/20 08:30 ALT 23 U/L (13-61) 07/26/20 08:30 Alkaline Phosphatase 63 U/L (45-117) 07/26/20 08:30 Total Protein 6.8 g/dl (6.4-8.2) 07/26/20 08:30 Albumin 3.5 g/dl (3.4-5.0) 07/26/20 08:30 POC Urine HCG, Qual Negative 07/25/20 14:57 Syphilis Serology Reactive (NONREACTIVE) A* 07/25/20 08:30 RPR Titer Reactive 1:1 (NONREACTIVE) H 07/25/20 08:30 Hep B DNA log10 helicopter technician/mL TNP 07/27/20 08:00 Hep B DNA (Units/mL) Hbv dna not detected IU/mL (.) 07/27/20 08:00 Hep C Ab Diagnostic <0.1 s/co ratio (0.0-0.9) 07/27/20 08:00 HIV Ag/Ab Combo Qual Negative (NEGATIVE) 07/27/20 08:00 07/29/20 17:26 treated for syphilis before Assessment: 07/29/20 17:26 withdrawal symptom Plan: continue detox librium regimen,discharge in am
[2020-07-29 17:52] VITALS: BP 115/73; PULSE 84
--- NOTE | 2020-07-29 18:22 | DS ---
[facility] Detox Discharge Summary Admission Date: 07/25/20 Discharge Date: 07/29/20 - History Additional Comments: Patient is being discharged to home. Her discharge was scheduled for tomorrow but patient reports that she spoke to the counselor that she has an urgent family issue at home and will prefer to be discharged today. Patient is alert and oriented x 3, ambulates independently, in no acute distress and vital signs stable. Discharge instructions and patient education done. Patient verbalized understanding of instructions. Discharged to home. Pertinent Past History: Alcohol dependence Cocaine dependence PTSD Syphilis Vaginal yeast infection - Physical Exam Results Vital Signs: Vital Signs Temperature 97.7 F 07/29/20 16:14 Pulse Rate 84 07/29/20 16:14 Respiratory Rate 18 07/29/20 16:14 Blood Pressure 115/73 07/29/20 16:14 O2 Sat by Pulse Oximetry (%) 98 07/29/20 12:31 Laboratory Last Values WBC 5.8 K/mm3 (4.0-10.0) 07/26/20 08:30 RBC 4.80 M/mm3 (3.60-5.2) 07/26/20 08:30 Hgb 12.6 GM/dL (10.7-15.3) 07/26/20 08:30 Hct 38.8 % (32.4-45.2) 07/26/20 08:30 MCV 80.8 fl (80-96) 07/26/20 08:30 MCH 26.3 pg (25.7-33.7) 07/26/20 08:30 MCHC 32.6 g/dl (32.0-36.0) 07/26/20 08:30 RDW 14.9 % (11.6-15.6) 07/26/20 08:30 Plt Count 336 K/MM3 (134-434) D 07/26/20 08:30 MPV 8.3 fl (7.5-11.1) 07/26/20 08:30 Sodium 142 mmol/L (136-145) 07/26/20 08:30 Potassium 4.3 mmol/L (3.5-5.1) 07/26/20 08:30 Chloride 110 mmol/L (98-107) H 07/26/20 08:30 Carbon Dioxide 25 mmol/L (21-32) 07/26/20 08:30 Anion Gap 7 MMOL/L (8-16) L 07/26/20 08:30 BUN 12.3 mg/dL (7-18) 07/26/20 08:30 Creatinine 0.8 mg/dL (0.55-1.3) 07/26/20 08:30 Est GFR (CKD-EPI)AfAm 98.24 07/26/20 08:30 Est GFR (CKD-EPI)NonAf 84.76 07/26/20 08:30 Random Glucose 82 mg/dL (74-106) 07/26/20 08:30 Calcium 9.0 mg/dL (8.5-10.1) 07/26/20 08:30 Total Bilirubin 0.5 mg/dL (0.2-1) 07/26/20 08:30 AST 24 U/L (15-37) 07/26/20 08:30 ALT 23 U/L (13-61) 07/26/20 08:30 Alkaline Phosphatase 63 U/L (45-117) 07/26/20 08:30 Total Protein 6.8 g/dl (6.4-8.2) 07/26/20 08:30 Albumin 3.5 g/dl (3.4-5.0) 07/26/20 08:30 POC Urine HCG, Qual Negative 07/25/20 14:57 Syphilis Serology Reactive (NONREACTIVE) A* 07/25/20 08:30 RPR Titer Reactive 1:1 (NONREACTIVE) H 07/25/20 08:30 Hep B DNA log10 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 copy 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/mL TNP 07/27/20 08:00 Hep B DNA (Units/mL) Hbv dna not detected IU/mL (.) 07/27/20 08:00 Hep C Ab Diagnostic <0.1 s/co ratio (0.0-0.9) 07/27/20 08:00 HIV Ag/Ab Combo Qual Negative (NEGATIVE) 07/27/20 08:00 Pertinent Admission Physical Exam Findings: Alcohol withdrawal symptoms - Medication Discharge Medications: Ambulatory Orders NK [No Known Home Medication] 07/25/20 - Diagnosis (1) Alcohol dependence with uncomplicated withdrawal Status: Chronic (2) Vaginal yeast infection Status: Chronic (3) Cocaine abuse Status: Chronic (4) History of posttraumatic stress disorder (PTSD) Status: Chronic (5) Syphilis contact, treated Status: Chronic - AMA Did Patient Leave Against Medical Advice: No
[2020-07-29] MEDS: MAG HYDROX/AL HYDROX/SIMETH 30 ML UNIT-DOSE CUP PO PRN (18:31)
[2020-07-30] MEDS ORDERED: chlordiazePOXIDE HCL 10 MG CAPSULE PO ONE (05:00)
== END 2020-07-29 06:35 | disposition home or self-care (01) | DRG 774 ==
LOC: YASAS 11:21 → Y3N 13:43
PROVIDERS: ADMIT Allergy & Immunology; ATTEND Allergy & Immunology
PROC: HZ2ZZZZ Detoxification Services for Substance Abuse Treatment (ICD-10-PCS; principal; 2020-07-25)
DX: F10.230 Alcohol dependence with withdrawal, uncomplicated (principal); F14.20 Cocaine dependence, uncomplicated; F43.10 Post-traumatic stress disorder, unspecified; L30.9 Dermatitis, unspecified; B37.3 Candidiasis of vulva and vagina; Z86.19 Personal history of other infectious and parasitic diseases; Z91.018 Allergy to other foods
CPT/HCPCS: 36415; 80053; 81025; 85027; 86593; 86780; 86803; 87389; 87491; 87516; 87591; 87661; U0003

== ENCOUNTER 2020-09-19 11:33 | Inpatient (IN) | payer OTHER ==
[2020-09-19 11:45] VITALS: BMI 25.5
[2020-09-19] MEDS ORDERED: MAGNESIUM CITRATE 300 ML BOTTLE PO PRN (12:53)
[2020-09-19] MEDS ORDERED: ACETAMINOPHEN 325 MG TABLET (FP) PO PRN ×2 (12:53)
[2020-09-19] MEDS ORDERED: hydrOXYzine PAMOATE 25 MG CAPSULE (FP) PO PRN (12:53)
[2020-09-19] MEDS ORDERED: MAGNESIUM HYDROX 2400MG/30ML ORAL SUSPENSION 30 ML CUP PO PRN (12:53)
[2020-09-19] MEDS ORDERED: MAG HYDROX/AL HYDROX/SIMETH 30 ML UNIT-DOSE CUP PO PRN (12:53)
[2020-09-19] MEDS ORDERED: IBUPROFEN 400 MG TABLET (FP) PO PRN (12:53)
[2020-09-19] MEDS ORDERED: chlordiazePOXIDE HCL 25 MG CAPSULE PO PRN (12:53)
[2020-09-19] MEDS ORDERED: MENTHOL/PHENOL 1 EACH UD MM PRN (12:53)
[2020-09-19] MEDS ORDERED: METHOCARBAMOL 500 MG TABLET PO PRN (12:53)
[2020-09-19] MEDS ORDERED: ONDANSETRON *ODT* 4 MG TABLET SL PRN (12:53)
[2020-09-19] MEDS ORDERED: BISMUTH SUBSALICYLATE 524 MG/30 ML UD PO PRN (12:53)
[2020-09-19] MEDS: SILVER SULFADIAZINE 1% TOP CREAM 50 GM JAR TP SCH ×2 (15:51→22:32)
[2020-09-19 16:17] LABS: URINE APPEARANCE CLEAR; URINE BILIRUBIN NEGATIVE (NEGATIVE); URINE COLOR YELLOW; URINE GLUCOSE (UA) NEGATIVE (NEGATIVE); URINE KETONE NEGATIVE (NEGATIVE); URINE LEUK ESTERASE NEGATIVE (NEGATIVE); URINE NITRITE NEGATIVE (NEGATIVE); URINE PROTEIN NEGATIVE (NEGATIVE); URINE UROBILINOGEN 0.2 mg/dL (0.2-1.0)
[2020-09-19] MEDS: chlordiazePOXIDE HCL 25 MG CAPSULE PO SCH ×2 (17:36→22:33)
[2020-09-19] MEDS ORDERED: metroNIDAZOLE 0.75% VAGINAL GEL 70 GM TUBE VG SCH (22:00)
[2020-09-19] MEDS ORDERED: MELATONIN 5 MG TABLETS PO SCH (22:00)
[2020-09-19] MEDS ORDERED: THIAMINE HCL 100 MG TABLET (FP) PO SCH (22:00)
[2020-09-20] MEDS: chlordiazePOXIDE HCL 25 MG CAPSULE PO SCH ×3 (05:27→17:45)
[2020-09-20] MEDS ORDERED: COLLOIDAL OATMEAL 1 BAR EACH TP PRN (09:46)
[2020-09-20] MEDS ORDERED: PRENATAL VITAMINS W/ FOLIC ACID TABLET (FP) PO SCH (10:00)
[2020-09-20] MEDS ORDERED: BETAMETHASONE DIPR 0.05% OINT 45 GM TUBE TP SCH (10:00)
[2020-09-20] MEDS: SILVER SULFADIAZINE 1% TOP CREAM 50 GM JAR TP SCH (10:54)
[2020-09-20 11:22] LABS: HEMATOCRIT 33.9 % (32.4-45.2); HEMOGLOBIN 11.4 GM/dL (10.7-15.3); MCH 26.4 pg (25.7-33.7); MCHC 33.6 g/dl (32.0-36.0); MEAN CELL VOLUME 78.7 fl (80-96); MEAN PLT VOLUME 8.3 fl (7.5-11.1); PLATELET COUNT 300 K/MM3 (134-434); RBC 4.31 M/mm3 (3.60-5.2); RDW 15.1 % (11.6-15.6); WHITE BLOOD COUNT 5.5 K/mm3 (4.0-10.0)
[2020-09-20 11:35] LABS: POTASSIUM 4.5 mmol/L (3.5-5.1)
[2020-09-20 11:44] LABS: BLOOD UREA NITROGEN 14.9 mg/dL (7-18)
[2020-09-20 11:45] LABS: ALBUMIN 2.9 g/dl (3.4-5.0); CALCIUM 8.6 mg/dL (8.5-10.1)
[2020-09-20 11:48] LABS: CREATININE 0.7 mg/dL (0.55-1.3)
[2020-09-20 11:49] LABS: BILIRUBIN,TOTAL 0.4 mg/dL (0.2-1)
[2020-09-20 11:50] LABS: TOT PROT 5.7 g/dl (6.4-8.2)
[2020-09-20 14:31] LABS: HIV INTERPRETATION NEGATIVE (NEGATIVE)
[2020-09-20] MEDS ORDERED: MASKS NR ONE (17:31)
[2020-09-20 18:19] VITALS: BP 113/79; PULSE 93; TEMP 98
[2020-09-21] MEDS ORDERED: chlordiazePOXIDE HCL 25 MG CAPSULE PO SCH (05:00)
[2020-09-22] MEDS ORDERED: chlordiazePOXIDE HCL 10 MG CAPSULE PO PRN
[2020-09-22] MEDS ORDERED: chlordiazePOXIDE HCL 10 MG CAPSULE PO SCH (05:00)
[2020-09-23] MEDS ORDERED: chlordiazePOXIDE HCL 10 MG CAPSULE PO SCH (05:00)
[2020-09-24] MEDS ORDERED: chlordiazePOXIDE HCL 10 MG CAPSULE PO ONE (05:00)
== END 2020-09-20 17:41 | disposition left against medical advice (07) | DRG 770 ==
LOC: YASAS 11:33 → Y6N 12:42
PROVIDERS: ADMIT Allergy & Immunology; ATTEND Allergy & Immunology
PROC: HZ2ZZZZ Detoxification Services for Substance Abuse Treatment (ICD-10-PCS; principal; 2020-09-19)
DX: F10.230 Alcohol dependence with withdrawal, uncomplicated (principal); F14.20 Cocaine dependence, uncomplicated; F43.10 Post-traumatic stress disorder, unspecified; F32.9 Major depressive disorder, single episode, unspecified; K21.9 Gastro-esophageal reflux disease without esophagitis; N76.0 Acute vaginitis; B96.89 Other specified bacterial agents as the cause of diseases classified elsewhere; T21.01XA Burn of unspecified degree of chest wall, initial encounter; X10.2XXA Contact with fats and cooking oils, initial encounter; Y93.G3 Activity, cooking and baking; Y92.010 Kitchen of single-family (private) house as the place of occurrence of the external cause; Y99.8 Other external cause status
CPT/HCPCS: 36415; 80053; 81003; 81025; 85027; 86593; 86780; 87389; C9803; U0003

== ENCOUNTER 2020-11-20 10:31 | Inpatient (IN) | payer OTHER ==
[2020-11-20 12:20] VITALS: BMI 25.8
[2020-11-20] MEDS ORDERED: MAG HYDROX/AL HYDROX/SIMETH 30 ML UNIT-DOSE CUP PO PRN (13:38)
[2020-11-20] MEDS ORDERED: NICOTINE POLACRILEX 2 MG GUM BUC PRN (13:38)
[2020-11-20] MEDS ORDERED: METHOCARBAMOL 500 MG TABLET PO PRN (13:38)
[2020-11-20] MEDS ORDERED: chlordiazePOXIDE HCL 25 MG CAPSULE PO ONE (13:38)
[2020-11-20] MEDS ORDERED: ACETAMINOPHEN 325 MG TABLET (FP) PO PRN ×2 (13:38)
[2020-11-20] MEDS ORDERED: MENTHOL/PHENOL 1 EACH UD MM PRN (13:38)
[2020-11-20] MEDS ORDERED: ONDANSETRON *ODT* 4 MG TABLET SL PRN (13:38)
[2020-11-20] MEDS ORDERED: MAGNESIUM CITRATE 300 ML BOTTLE PO PRN (13:38)
[2020-11-20] MEDS ORDERED: BISMUTH SUBSALICYLATE 524 MG/30 ML UD PO PRN (13:38)
[2020-11-20] MEDS ORDERED: IBUPROFEN 400 MG TABLET (FP) PO PRN (13:38)
[2020-11-20] MEDS ORDERED: chlordiazePOXIDE HCL 25 MG CAPSULE PO PRN (13:38)
[2020-11-20] MEDS ORDERED: MAGNESIUM HYDROX 2400MG/30ML ORAL SUSPENSION 30 ML CUP PO PRN (13:38)
[2020-11-20] MEDS ORDERED: ERGOCALCIFEROL (VIT D2) 50,000 UNIT (1.25 MG) CAPSULE PO SCH (13:45)
[2020-11-20] MEDS: hydrOXYzine PAMOATE 25 MG CAPSULE (FP) PO SCH ×3 (14:35→22:28)
[2020-11-20] MEDS: PRENATAL VITAMINS W/ FOLIC ACID TABLET (FP) PO SCH (14:37)
[2020-11-20] MEDS: BETAMETHASONE DIPR 0.05% OINTMENT 15 GM TUBE TP SCH (15:10)
[2020-11-20] MEDS: CARBAMIDE PEROXIDE 6.5% OTIC 15 ML BOTTLE AS SCH ×2 (15:10→22:31)
[2020-11-20] MEDS: chlordiazePOXIDE HCL 25 MG CAPSULE PO SCH ×2 (18:06→22:29)
[2020-11-20] MEDS: MELATONIN 5 MG TABLETS PO SCH (22:28)
[2020-11-20] MEDS: THIAMINE HCL 100 MG TABLET (FP) PO SCH (22:29)
[2020-11-21] MEDS: hydrOXYzine PAMOATE 25 MG CAPSULE (FP) PO SCH ×5 (06:58→22:37)
[2020-11-21] MEDS: chlordiazePOXIDE HCL 25 MG CAPSULE PO SCH ×4 (06:58→22:33)
[2020-11-21] MEDS: BETAMETHASONE DIPR 0.05% OINTMENT 15 GM TUBE TP SCH (10:17)
[2020-11-21] MEDS: CARBAMIDE PEROXIDE 6.5% OTIC 15 ML BOTTLE AS SCH ×3 (10:18→22:39)
[2020-11-21] MEDS: PRENATAL VITAMINS W/ FOLIC ACID TABLET (FP) PO SCH (10:19)
[2020-11-21] MEDS ORDERED: FLUCONAZOLE 150 MG TABLET PO ONE (14:30)
[2020-11-21] MEDS ORDERED: CLOTRIMAZOLE 1% VAGINAL CREAM WITH APPLICATOR 45 GM TUBE VG SCH (22:00)
[2020-11-21] MEDS: THIAMINE HCL 100 MG TABLET (FP) PO SCH (22:33)
[2020-11-21] MEDS: MELATONIN 5 MG TABLETS PO SCH (22:33)
[2020-11-22] MEDS: hydrOXYzine PAMOATE 25 MG CAPSULE (FP) PO SCH ×3 (06:15→14:19)
[2020-11-22] MEDS: chlordiazePOXIDE HCL 25 MG CAPSULE PO SCH ×2 (06:15→10:23)
[2020-11-22] MEDS ORDERED: COLLOIDAL OATMEAL 1 BAR EACH TP PRN (10:09)
[2020-11-22] MEDS: BETAMETHASONE DIPR 0.05% OINTMENT 15 GM TUBE TP SCH (10:22)
[2020-11-22] MEDS: PRENATAL VITAMINS W/ FOLIC ACID TABLET (FP) PO SCH (10:22)
[2020-11-22] MEDS: CARBAMIDE PEROXIDE 6.5% OTIC 15 ML BOTTLE AS SCH (10:23)
[2020-11-22 13:39] VITALS: BP 138/91; PULSE 78; TEMP 97.3
[2020-11-22] MEDS ORDERED: CLOTRIMAZOLE 1% VAGINAL CREAM WITH APPLICATOR 45 GM TUBE VG SCH (22:00)
[2020-11-23] MEDS ORDERED: chlordiazePOXIDE HCL 10 MG CAPSULE PO PRN
[2020-11-23] MEDS ORDERED: chlordiazePOXIDE HCL 10 MG CAPSULE PO SCH (05:00)
[2020-11-24] MEDS ORDERED: chlordiazePOXIDE HCL 10 MG CAPSULE PO SCH (05:00)
[2020-11-25] MEDS ORDERED: chlordiazePOXIDE HCL 10 MG CAPSULE PO ONE (05:00)
== END 2020-11-22 16:40 | disposition left against medical advice (07) | DRG 770 ==
LOC: YASAS 10:31 → Y6N 13:39
PROVIDERS: ADMIT Allergy & Immunology; ATTEND Allergy & Immunology
PROC: HZ2ZZZZ Detoxification Services for Substance Abuse Treatment (ICD-10-PCS; principal; 2020-11-20)
DX: F10.230 Alcohol dependence with withdrawal, uncomplicated (principal); F14.10 Cocaine abuse, uncomplicated; F43.10 Post-traumatic stress disorder, unspecified; H61.22 Impacted cerumen, left ear; N89.8 Other specified noninflammatory disorders of vagina; Z87.828 Personal history of other (healed) physical injury and trauma; Z98.890 Other specified postprocedural states; Z91.018 Allergy to other foods
CPT/HCPCS: 93005; 93010; C9803; U0003

== ENCOUNTER 2020-12-25 11:53 | Inpatient (IN) | payer OTHER ==
[2020-12-25 13:51] VITALS: BMI 25.9
[2020-12-25] MEDS ORDERED: BISMUTH SUBSALICYLATE 524 MG/30 ML UD PO PRN (14:18)
[2020-12-25] MEDS ORDERED: ONDANSETRON *ODT* 4 MG TABLET SL PRN (14:18)
[2020-12-25] MEDS ORDERED: chlordiazePOXIDE HCL 25 MG CAPSULE PO ONE (14:18)
[2020-12-25] MEDS ORDERED: MAGNESIUM HYDROX 2400MG/30ML ORAL SUSPENSION 30 ML CUP PO PRN (14:18)
[2020-12-25] MEDS ORDERED: ACETAMINOPHEN 325 MG TABLET (FP) PO PRN ×2 (14:18)
[2020-12-25] MEDS ORDERED: METHOCARBAMOL 500 MG TABLET PO PRN (14:18)
[2020-12-25] MEDS ORDERED: MENTHOL/PHENOL 1 EACH UD MM PRN (14:18)
[2020-12-25] MEDS ORDERED: MAGNESIUM CITRATE 300 ML BOTTLE PO PRN (14:18)
[2020-12-25] MEDS ORDERED: IBUPROFEN 400 MG TABLET (FP) PO PRN (14:18)
[2020-12-25] MEDS ORDERED: chlordiazePOXIDE HCL 25 MG CAPSULE PO PRN (14:18)
[2020-12-25] MEDS ORDERED: MAG HYDROX/AL HYDROX/SIMETH 30 ML UNIT-DOSE CUP PO PRN (14:18)
[2020-12-25] MEDS ORDERED: COLLOIDAL OATMEAL 1 BAR EACH TP PRN (14:19)
[2020-12-25] MEDS ORDERED: AMMONIUM LACTATE 12% LOTION 225 GM BOTTLE TP PRN (14:19)
[2020-12-25] MEDS ORDERED: hydrOXYzine PAMOATE 25 MG CAPSULE (FP) PO PRN (14:26)
[2020-12-25] MEDS: BETAMETHASONE DIPR 0.05% OINT 45 GM TUBE TP SCH (15:23)
[2020-12-25] MEDS: DOCUSATE SODIUM 100 MG CAPSULE (FP) PO PRN (15:23)
[2020-12-25] MEDS: PRENATAL VITAMINS W/ FOLIC ACID TABLET (FP) PO SCH (15:24)
[2020-12-25] MEDS: ARTIFICIAL TEARS (POLYVINYL ALCOHOL) OPTH DROPS OU PRN ×2 (15:25→20:27)
[2020-12-25] MEDS: chlordiazePOXIDE HCL 25 MG CAPSULE PO SCH ×2 (17:10→22:23)
[2020-12-25] MEDS: THIAMINE HCL 100 MG TABLET (FP) PO SCH (22:22)
[2020-12-25] MEDS: MELATONIN 5 MG TABLETS PO SCH (22:22)
[2020-12-25] MEDS: MICONAZOLE NITRATE 2% VAGINAL CREAM 45 GM TUBE VG SCH (22:23)
[2020-12-25] MEDS: valACYclovir HCL 500 MG TABLET (FP) PO SCH (22:23)
[2020-12-26] MEDS: chlordiazePOXIDE HCL 25 MG CAPSULE PO SCH ×4 (06:34→22:05)
[2020-12-26 09:55] LABS: POTASSIUM 4.2 mmol/L (3.5-5.1)
[2020-12-26 10:02] LABS: ALBUMIN 2.8 g/dl (3.4-5.0); BILIRUBIN,TOTAL 0.5 mg/dL (0.2-1); BLOOD UREA NITROGEN 13.3 mg/dL (7-18); CREATININE 0.7 mg/dL (0.55-1.3); TOT PROT 5.6 g/dl (6.4-8.2)
[2020-12-26 10:04] LABS: CALCIUM 8.7 mg/dL (8.5-10.1)
[2020-12-26 10:05] LABS: HEMATOCRIT 32.6 % (32.4-45.2); HEMOGLOBIN 10.9 GM/dL (10.7-15.3); MCH 25.8 pg (25.7-33.7); MCHC 33.5 g/dl (32.0-36.0); MEAN CELL VOLUME 77.3 fl (80-96); MEAN PLT VOLUME 8.1 fl (7.5-11.1); PLATELET COUNT 278 K/MM3 (134-434); RBC 4.22 M/mm3 (3.60-5.2); RDW 15.3 % (11.6-15.6); WHITE BLOOD COUNT 4.8 K/mm3 (4.0-10.0)
[2020-12-26] MEDS: valACYclovir HCL 500 MG TABLET (FP) PO SCH ×2 (10:10→22:03)
[2020-12-26] MEDS: PRENATAL VITAMINS W/ FOLIC ACID TABLET (FP) PO SCH (10:10)
[2020-12-26] MEDS: DOCUSATE SODIUM 100 MG CAPSULE (FP) PO PRN (10:11)
[2020-12-26] MEDS: BETAMETHASONE DIPR 0.05% OINT 45 GM TUBE TP SCH (10:12)
[2020-12-26] MEDS: ARTIFICIAL TEARS (POLYVINYL ALCOHOL) OPTH DROPS OU PRN ×3 (10:13→22:05)
[2020-12-26 10:50] LABS: HIV INTERPRETATION NEGATIVE (NEGATIVE)
[2020-12-26 17:08] LABS: PH,URINE 7.5 (5.0-8.0); URINE APPEARANCE CLOUDY; URINE BILIRUBIN NEGATIVE (NEGATIVE); URINE COLOR YELLOW; URINE GLUCOSE (UA) NEGATIVE (NEGATIVE); URINE KETONE NEGATIVE (NEGATIVE); URINE LEUK ESTERASE NEGATIVE (NEGATIVE); URINE NITRITE NEGATIVE (NEGATIVE); URINE PROTEIN NEGATIVE (NEGATIVE); URINE UROBILINOGEN 0.2 mg/dL (0.2-1.0)
[2020-12-26] MEDS: THIAMINE HCL 100 MG TABLET (FP) PO SCH (22:03)
[2020-12-26] MEDS: MICONAZOLE NITRATE 2% VAGINAL CREAM 45 GM TUBE VG SCH (22:03)
[2020-12-26] MEDS: MELATONIN 5 MG TABLETS PO SCH (22:03)
[2020-12-27] MEDS: chlordiazePOXIDE HCL 25 MG CAPSULE PO SCH ×4 (06:44→22:10)
[2020-12-27] MEDS ORDERED: MASKS NR ONE (08:14)
[2020-12-27] MEDS ORDERED: ERGOCALCIFEROL (VIT D2) 50,000 UNIT (1.25 MG) CAPSULE PO SCH (10:00)
[2020-12-27] MEDS: valACYclovir HCL 500 MG TABLET (FP) PO SCH ×2 (10:25→22:10)
[2020-12-27] MEDS: PRENATAL VITAMINS W/ FOLIC ACID TABLET (FP) PO SCH (10:25)
[2020-12-27] MEDS: ARTIFICIAL TEARS (POLYVINYL ALCOHOL) OPTH DROPS OU PRN ×2 (10:25→15:44)
[2020-12-27] MEDS: BETAMETHASONE DIPR 0.05% OINT 45 GM TUBE TP SCH (10:26)
[2020-12-27] MEDS: DOCUSATE SODIUM 100 MG CAPSULE (FP) PO PRN ×2 (10:27→22:11)
[2020-12-27] MEDS: MELATONIN 5 MG TABLETS PO SCH (22:10)
[2020-12-27] MEDS: THIAMINE HCL 100 MG TABLET (FP) PO SCH (22:10)
[2020-12-27] MEDS: MICONAZOLE NITRATE 2% VAGINAL CREAM 45 GM TUBE VG SCH (22:10)
[2020-12-28] MEDS ORDERED: chlordiazePOXIDE HCL 10 MG CAPSULE PO PRN
[2020-12-28] MEDS: chlordiazePOXIDE HCL 10 MG CAPSULE PO SCH ×4 (06:18→22:09)
[2020-12-28] MEDS: valACYclovir HCL 500 MG TABLET (FP) PO SCH ×2 (10:17→22:09)
[2020-12-28] MEDS: PRENATAL VITAMINS W/ FOLIC ACID TABLET (FP) PO SCH (10:17)
[2020-12-28] MEDS: DOCUSATE SODIUM 100 MG CAPSULE (FP) PO PRN (10:17)
[2020-12-28] MEDS: BETAMETHASONE DIPR 0.05% OINT 45 GM TUBE TP SCH (10:18)
[2020-12-28] MEDS: MELATONIN 5 MG TABLETS PO SCH (22:08)
[2020-12-28] MEDS: MICONAZOLE NITRATE 2% VAGINAL CREAM 45 GM TUBE VG SCH (22:08)
[2020-12-28] MEDS: THIAMINE HCL 100 MG TABLET (FP) PO SCH (22:09)
[2020-12-29] MEDS: chlordiazePOXIDE HCL 10 MG CAPSULE PO SCH ×2 (05:51→18:34)
[2020-12-29] MEDS: DOCUSATE SODIUM 100 MG CAPSULE (FP) PO PRN (06:27)
[2020-12-29] MEDS: PRENATAL VITAMINS W/ FOLIC ACID TABLET (FP) PO SCH (09:36)
[2020-12-29] MEDS: BETAMETHASONE DIPR 0.05% OINT 45 GM TUBE TP SCH (09:36)
[2020-12-29] MEDS: valACYclovir HCL 500 MG TABLET (FP) PO SCH ×2 (09:36→22:06)
[2020-12-29] MEDS: THIAMINE HCL 100 MG TABLET (FP) PO SCH (22:06)
[2020-12-29] MEDS: MELATONIN 5 MG TABLETS PO SCH (22:06)
[2020-12-29] MEDS: MICONAZOLE NITRATE 2% VAGINAL CREAM 45 GM TUBE VG SCH (22:08)
[2020-12-29] MEDS: ARTIFICIAL TEARS (POLYVINYL ALCOHOL) OPTH DROPS OU PRN (22:34)
[2020-12-30] MEDS ORDERED: chlordiazePOXIDE HCL 10 MG CAPSULE PO ONE (05:00)
[2020-12-30 07:34] VITALS: PULSE 84; TEMP 97.5
[2020-12-30] MEDS: valACYclovir HCL 500 MG TABLET (FP) PO SCH (09:54)
[2020-12-30] MEDS: BETAMETHASONE DIPR 0.05% OINT 45 GM TUBE TP SCH (09:54)
[2020-12-30] MEDS: PRENATAL VITAMINS W/ FOLIC ACID TABLET (FP) PO SCH (09:54)
[2020-12-30 10:01] VITALS: BP 123/84
== END 2020-12-30 11:34 | disposition other institution (70) | DRG 774 ==
LOC: YASAS 11:53 → Y3N 14:00
PROVIDERS: ADMIT Allergy & Immunology; ATTEND Allergy & Immunology
PROC: HZ2ZZZZ Detoxification Services for Substance Abuse Treatment (ICD-10-PCS; principal; 2020-12-25)
DX: F10.230 Alcohol dependence with withdrawal, uncomplicated (principal); F14.10 Cocaine abuse, uncomplicated; F19.24 Other psychoactive substance dependence with psychoactive substance-induced mood disorder; F43.10 Post-traumatic stress disorder, unspecified; A60.1 Herpesviral infection of perianal skin and rectum; B37.3 Candidiasis of vulva and vagina; K59.00 Constipation, unspecified; H04.123 Dry eye syndrome of bilateral lacrimal glands; L85.3 Xerosis cutis; Z86.19 Personal history of other infectious and parasitic diseases; Z91.018 Allergy to other foods
CPT/HCPCS: 36415; 80053; 81003; 81025; 85027; 86593; 86780; 87389; 87491; 87591; C9803; U0003

== ENCOUNTER 2020-12-30 10:19 | Inpatient (IN) | payer OTHER ==
[2020-12-30] MEDS ORDERED: MAG HYDROX/AL HYDROX/SIMETH 30 ML UNIT-DOSE CUP PO PRN (12:34)
[2020-12-30] MEDS ORDERED: guaiFENesin 200 MG/10 ML 10 ML UNIT-DOSE CUPS PO PRN (12:34)
[2020-12-30] MEDS ORDERED: ACETAMINOPHEN 325 MG TABLET (FP) PO PRN (12:34)
[2020-12-30] MEDS ORDERED: NICOTINE POLACRILEX 2 MG GUM BUC PRN (12:34)
[2020-12-30] MEDS ORDERED: P-EPHED 60MG/TRIPROLIDI 2.5MG TABLET PO PRN (12:34)
[2020-12-30] MEDS ORDERED: MAGNESIUM HYDROX 2400MG/30ML ORAL SUSPENSION 30 ML CUP PO PRN (12:34)
[2020-12-30] MEDS ORDERED: IBUPROFEN 400 MG TABLET (FP) PO PRN (12:34)
[2020-12-30] MEDS ORDERED: MENTHOL/PHENOL 1 EACH UD MM PRN (12:34)
[2020-12-30] MEDS ORDERED: LOPERAMIDE HCL 2 MG CAPSULE PO PRN (12:34)
[2020-12-30] MEDS ORDERED: COLLOIDAL OATMEAL 1 BAR EACH TP PRN (12:40)
[2020-12-30] MEDS ORDERED: hydrOXYzine PAMOATE 25 MG CAPSULE (FP) PO PRN (12:46)
[2020-12-30] MEDS ORDERED: hydrOXYzine PAMOATE 25 MG CAPSULE (FP) PO SCH (14:00)
[2020-12-30] MEDS: METHOCARBAMOL 500 MG TABLET PO SCH ×3 (15:58→21:21)
[2020-12-30] MEDS: THIAMINE HCL 100 MG TABLET (FP) PO SCH (21:19)
[2020-12-30] MEDS: MELATONIN 5 MG TABLETS PO SCH (21:19)
[2020-12-30] MEDS: DOCUSATE SODIUM 100 MG CAPSULE (FP) PO SCH (21:20)
[2020-12-30] MEDS: valACYclovir HCL 500 MG TABLET (FP) PO SCH (21:22)
[2020-12-30] MEDS ORDERED: PT OWN MED DRAWER 7, Y5N ONE (21:47)
[2020-12-31] MEDS ORDERED: PT OWN MED DRAWER 7, Y5N ONE ×5 (06:55→14:45)
[2020-12-31] MEDS: DOCUSATE SODIUM 100 MG CAPSULE (FP) PO SCH ×3 (06:56→21:14)
[2020-12-31] MEDS: AMMONIUM LACTATE 12% LOTION 225 GM BOTTLE TP PRN (06:58)
[2020-12-31] MEDS: MAGNESIUM CITRATE 300 ML BOTTLE PO PRN (07:00)
[2020-12-31] MEDS: METHOCARBAMOL 500 MG TABLET PO SCH ×4 (10:14→21:14)
[2020-12-31] MEDS: valACYclovir HCL 500 MG TABLET (FP) PO SCH ×2 (10:15→21:14)
[2020-12-31] MEDS: PRENATAL VITAMINS W/ FOLIC ACID TABLET (FP) PO SCH (10:15)
[2020-12-31] MEDS: BETAMETHASONE DIPR 0.05% OINTMENT 15 GM TUBE TP SCH (10:16)
[2020-12-31] MEDS: NICOTINE 7 MG/24 HOURS TOPICAL PATCH TD SCH (10:16)
[2020-12-31] MEDS: ARTIFICIAL TEARS (POLYVINYL ALCOHOL) OPTH DROPS OU PRN (14:44)
[2020-12-31] MEDS: THIAMINE HCL 100 MG TABLET (FP) PO SCH (21:13)
[2020-12-31] MEDS: MELATONIN 5 MG TABLETS PO SCH (21:13)
[2021-01-01] MEDS: DOCUSATE SODIUM 100 MG CAPSULE (FP) PO SCH ×3 (06:34→21:12)
[2021-01-01] MEDS ORDERED: PT OWN MED DRAWER 7, Y5N ONE ×3 (08:49→19:01)
[2021-01-01] MEDS: NICOTINE 7 MG/24 HOURS TOPICAL PATCH TD SCH (09:37)
[2021-01-01] MEDS: METHOCARBAMOL 500 MG TABLET PO SCH ×4 (09:37→21:12)
[2021-01-01] MEDS: valACYclovir HCL 500 MG TABLET (FP) PO SCH ×2 (09:37→21:12)
[2021-01-01] MEDS: ARTIFICIAL TEARS (POLYVINYL ALCOHOL) OPTH DROPS OU PRN ×2 (09:38→21:11)
[2021-01-01] MEDS: BETAMETHASONE DIPR 0.05% OINTMENT 15 GM TUBE TP SCH (09:38)
[2021-01-01] MEDS: PRENATAL VITAMINS W/ FOLIC ACID TABLET (FP) PO SCH (09:38)
[2021-01-01] MEDS: AMMONIUM LACTATE 12% LOTION 225 GM BOTTLE TP PRN (09:41)
[2021-01-01] MEDS: MELATONIN 5 MG TABLETS PO SCH (21:12)
[2021-01-01] MEDS: THIAMINE HCL 100 MG TABLET (FP) PO SCH (21:13)
[2021-01-02] MEDS: DOCUSATE SODIUM 100 MG CAPSULE (FP) PO SCH ×3 (06:31→21:08)
[2021-01-02] MEDS ORDERED: PT OWN MED DRAWER 7, Y5N ONE (08:38)
[2021-01-02] MEDS: NICOTINE 7 MG/24 HOURS TOPICAL PATCH TD SCH (09:33)
[2021-01-02] MEDS: METHOCARBAMOL 500 MG TABLET PO SCH ×4 (09:33→21:09)
[2021-01-02] MEDS: PRENATAL VITAMINS W/ FOLIC ACID TABLET (FP) PO SCH (09:33)
[2021-01-02] MEDS: valACYclovir HCL 500 MG TABLET (FP) PO SCH ×2 (09:33→21:09)
[2021-01-02] MEDS: BETAMETHASONE DIPR 0.05% OINTMENT 15 GM TUBE TP SCH (09:34)
[2021-01-02] MEDS: MELATONIN 5 MG TABLETS PO SCH (21:08)
[2021-01-02] MEDS: THIAMINE HCL 100 MG TABLET (FP) PO SCH (21:08)
[2021-01-03] MEDS: DOCUSATE SODIUM 100 MG CAPSULE (FP) PO SCH ×2 (06:34→13:37)
[2021-01-03] MEDS: MAGNESIUM CITRATE 300 ML BOTTLE PO PRN (06:37)
[2021-01-03 06:38] VITALS: BP 105/71; PULSE 71; TEMP 97.3
[2021-01-03] MEDS ORDERED: PT OWN MED DRAWER 7, Y5N ONE ×3 (08:39→15:41)
[2021-01-03] MEDS: METHOCARBAMOL 500 MG TABLET PO SCH (09:15)
[2021-01-03] MEDS: PRENATAL VITAMINS W/ FOLIC ACID TABLET (FP) PO SCH (09:15)
[2021-01-03] MEDS: valACYclovir HCL 500 MG TABLET (FP) PO SCH (09:15)
[2021-01-03] MEDS: NICOTINE 7 MG/24 HOURS TOPICAL PATCH TD SCH (09:16)
[2021-01-03] MEDS ORDERED: BETAMETHASONE DIPR 0.05% OINT 45 GM TUBE TP SCH (10:00)
[2021-01-03] MEDS: ARTIFICIAL TEARS (POLYVINYL ALCOHOL) OPTH DROPS OU PRN (13:37)
[2021-01-06] MEDS ORDERED: ERGOCALCIFEROL (VIT D2) 50,000 UNIT (1.25 MG) CAPSULE PO SCH (10:00)
== END 2021-01-03 15:42 | disposition home or self-care (01) | DRG 772 ==
LOC: YASAS 10:19 → Y3E 10:20 → UNDOADMIN 10:20 → UNDODISIN 01-03 15:42
PROVIDERS: ADMIT Allergy & Immunology; ATTEND Allergy & Immunology
PROC: HZ42ZZZ Group Counseling for Substance Abuse Treatment, Cognitive-Behavioral (ICD-10-PCS; principal; 2020-12-30)
DX: F10.20 Alcohol dependence, uncomplicated (principal); F14.20 Cocaine dependence, uncomplicated; F43.10 Post-traumatic stress disorder, unspecified; A60.1 Herpesviral infection of perianal skin and rectum; E55.9 Vitamin D deficiency, unspecified; L85.3 Xerosis cutis
CPT/HCPCS: C9803; U0003

== ENCOUNTER 2022-01-04 17:38 | Inpatient (IN) | payer OTHER ==
[2022-01-04] MEDS: chlordiazePOXIDE HCL 25 MG CAPSULE PO SCH (00:19)
[2022-01-04] MEDS ORDERED: ONDANSETRON *ODT* 4 MG TABLET SL PRN (20:09)
[2022-01-04] MEDS ORDERED: MAG HYDROX/AL HYDROX/SIMETH 30 ML UNIT-DOSE CUP PO PRN (20:09)
[2022-01-04] MEDS ORDERED: LOPERAMIDE HCL 2 MG CAPSULE PO PRN (20:09)
[2022-01-04] MEDS ORDERED: BISMUTH SUBSALICYLATE 524 MG/30 ML PO PRN (20:09)
[2022-01-04] MEDS ORDERED: MENTHOL/PHENOL 1 EACH UD MM PRN (20:09)
[2022-01-04] MEDS ORDERED: ACETAMINOPHEN 325 MG TABLET (FP) PO PRN ×2 (20:09)
[2022-01-04] MEDS ORDERED: MAGNESIUM CITRATE 300 ML BOTTLE PO PRN (20:09)
[2022-01-04] MEDS ORDERED: IBUPROFEN 400 MG TABLET (FP) PO PRN (20:09)
[2022-01-04] MEDS ORDERED: chlordiazePOXIDE HCL 25 MG CAPSULE PO PRN (20:09)
[2022-01-04] MEDS ORDERED: MAGNESIUM HYDROX 2400MG/30ML ORAL SUSPENSION 30 ML CUP PO PRN (20:09)
[2022-01-04 20:43] VITALS: BMI 22.3
[2022-01-05] MEDS ORDERED: chlordiazePOXIDE HCL 25 MG CAPSULE ONE (00:16)
[2022-01-05] MEDS: THIAMINE HCL 100 MG TABLET (FP) PO SCH ×2 (00:19→22:03)
[2022-01-05] MEDS: MELATONIN 5 MG TABLETS PO SCH ×2 (00:19→22:03)
[2022-01-05] MEDS: chlordiazePOXIDE HCL 25 MG CAPSULE PO SCH ×4 (05:54→22:03)
[2022-01-05] MEDS: PRENATAL VITAMINS W/ FOLIC ACID TABLET (FP) PO SCH (10:23)
[2022-01-05] MEDS: METHOCARBAMOL 500 MG TABLET PO PRN (10:23)
[2022-01-05] MEDS: MINERAL OIL/PETROLAT/WATER TOPICAL CREAM 113 GM JAR TP SCH ×2 (13:12→22:06)
[2022-01-05] MEDS: BETAMETHASONE VALER 0.1% OINT 15 GM TUBE TP SCH ×2 (13:17→21:15)
[2022-01-05] MEDS: COLLOIDAL OATMEAL 1 BAR EACH TP PRN (13:59)
[2022-01-05 17:13] LABS: HEMATOCRIT 38.5 % (32.4-45.2); HEMOGLOBIN 12.3 GM/dL (10.7-15.3); MCH 25.3 pg (25.7-33.7); MEAN CELL VOLUME 79.1 fl (80-96); MEAN PLT VOLUME 8.3 fl (7.5-11.1); PLATELET COUNT 342 10^3/uL (134-434); RBC 4.87 M/mm3 (3.60-5.2); RDW 16.2 % (11.6-15.6); WHITE BLOOD COUNT 5.7 K/mm3 (4.0-10.0)
[2022-01-05 17:16] LABS: CALCIUM 9.4 mg/dL (8.5-10.1)
[2022-01-05 17:17] LABS: ALBUMIN 3.4 g/dl (3.4-5.0); BLOOD UREA NITROGEN 11.9 mg/dL (7-18)
[2022-01-05 17:19] LABS: CREATININE 0.8 mg/dL (0.55-1.3)
[2022-01-05 17:20] LABS: BILIRUBIN,TOTAL 0.4 mg/dL (0.2-1)
[2022-01-05 17:21] LABS: TOT PROT 6.8 g/dl (6.4-8.2)
[2022-01-05] MEDS: MICONAZOLE NITRATE 2% VAGINAL CREAM 45 GM TUBE VG SCH ×2 (21:16→22:05)
[2022-01-06] MEDS: chlordiazePOXIDE HCL 25 MG CAPSULE PO SCH ×4 (05:39→22:38)
[2022-01-06] MEDS: METHOCARBAMOL 500 MG TABLET PO PRN (10:28)
[2022-01-06] MEDS: PRENATAL VITAMINS W/ FOLIC ACID TABLET (FP) PO SCH (10:28)
[2022-01-06] MEDS: BETAMETHASONE VALER 0.1% OINT 15 GM TUBE TP SCH ×2 (10:29→22:34)
[2022-01-06] MEDS: MINERAL OIL/PETROLAT/WATER TOPICAL CREAM 113 GM JAR TP SCH ×2 (10:30→22:31)
[2022-01-06 14:08] LABS: SARS-CoV-2 NAA Not Detected (Not Detected)
[2022-01-06] MEDS: ARTIFICIAL TEARS (POLYVINYL ALCOHOL) OPTH DROPS OU SCH ×2 (15:02→22:34)
[2022-01-06] MEDS: MICONAZOLE NITRATE 2% VAGINAL CREAM 45 GM TUBE VG SCH (22:31)
[2022-01-06] MEDS: MELATONIN 5 MG TABLETS PO SCH (22:34)
[2022-01-06] MEDS: THIAMINE HCL 100 MG TABLET (FP) PO SCH (22:35)
[2022-01-07] MEDS ORDERED: chlordiazePOXIDE HCL 10 MG CAPSULE PO PRN
[2022-01-07] MEDS: chlordiazePOXIDE HCL 10 MG CAPSULE PO SCH ×4 (04:31→23:21)
[2022-01-07] MEDS: ARTIFICIAL TEARS (POLYVINYL ALCOHOL) OPTH DROPS OU SCH ×3 (07:27→23:20)
[2022-01-07] MEDS: PRENATAL VITAMINS W/ FOLIC ACID TABLET (FP) PO SCH (10:14)
[2022-01-07] MEDS: COLLOIDAL OATMEAL 1 BAR EACH TP PRN (10:14)
[2022-01-07] MEDS: METHOCARBAMOL 500 MG TABLET PO PRN (10:14)
[2022-01-07] MEDS: BETAMETHASONE VALER 0.1% OINT 15 GM TUBE TP SCH ×2 (10:15→23:06)
[2022-01-07] MEDS: MINERAL OIL/PETROLAT/WATER TOPICAL CREAM 113 GM JAR TP SCH ×2 (10:15→23:08)
[2022-01-07] MEDS: THIAMINE HCL 100 MG TABLET (FP) PO SCH (23:06)
[2022-01-07] MEDS: MELATONIN 5 MG TABLETS PO SCH (23:07)
[2022-01-07] MEDS: MICONAZOLE NITRATE 2% VAGINAL CREAM 45 GM TUBE VG SCH (23:07)
[2022-01-08] MEDS: ARTIFICIAL TEARS (POLYVINYL ALCOHOL) OPTH DROPS OU SCH ×3 (06:42→22:00)
[2022-01-08] MEDS: chlordiazePOXIDE HCL 10 MG CAPSULE PO SCH ×2 (06:42→17:38)
[2022-01-08] MEDS: PRENATAL VITAMINS W/ FOLIC ACID TABLET (FP) PO SCH (09:57)
[2022-01-08] MEDS: METHOCARBAMOL 500 MG TABLET PO PRN (09:57)
[2022-01-08] MEDS: MINERAL OIL/PETROLAT/WATER TOPICAL CREAM 113 GM JAR TP SCH ×2 (09:57→22:00)
[2022-01-08] MEDS: BETAMETHASONE VALER 0.1% OINT 15 GM TUBE TP SCH ×2 (09:58→22:00)
[2022-01-08] MEDS: THIAMINE HCL 100 MG TABLET (FP) PO SCH (22:00)
[2022-01-08] MEDS: MICONAZOLE NITRATE 2% VAGINAL CREAM 45 GM TUBE VG SCH (22:00)
[2022-01-08] MEDS: MELATONIN 5 MG TABLETS PO SCH (22:00)
[2022-01-09] MEDS ORDERED: chlordiazePOXIDE HCL 10 MG CAPSULE PO ONE (05:00)
[2022-01-09] MEDS: ARTIFICIAL TEARS (POLYVINYL ALCOHOL) OPTH DROPS OU SCH (06:54)
[2022-01-09] MEDS: PRENATAL VITAMINS W/ FOLIC ACID TABLET (FP) PO SCH (10:27)
[2022-01-09] MEDS: MINERAL OIL/PETROLAT/WATER TOPICAL CREAM 113 GM JAR TP SCH (10:28)
[2022-01-09] MEDS: BETAMETHASONE VALER 0.1% OINT 15 GM TUBE TP SCH (10:28)
[2022-01-09 12:49] VITALS: BP 127/82; PULSE 88; TEMP 98.6
== END 2022-01-09 13:43 | disposition other institution (70) | DRG 774 ==
LOC: YASAS 17:38 → Y6N 01-05 00:14
PROVIDERS: ADMIT Allergy & Immunology; ATTEND Allergy & Immunology
PROC: HZ2ZZZZ Detoxification Services for Substance Abuse Treatment (ICD-10-PCS; principal; 2022-01-05)
DX: F10.230 Alcohol dependence with withdrawal, uncomplicated (principal); F14.10 Cocaine abuse, uncomplicated; F41.9 Anxiety disorder, unspecified; F32.A Depression, unspecified; A53.0 Latent syphilis, unspecified as early or late; A60.1 Herpesviral infection of perianal skin and rectum; D50.9 Iron deficiency anemia, unspecified; H04.123 Dry eye syndrome of bilateral lacrimal glands; L85.3 Xerosis cutis; K21.9 Gastro-esophageal reflux disease without esophagitis; Z86.19 Personal history of other infectious and parasitic diseases; Z56.0 Unemployment, unspecified
CPT/HCPCS: 36415; 80053; 85027; 86593; 86780; 93005; 93010; C9803; U0003; U0005

== ENCOUNTER 2022-01-09 15:03 | Inpatient (IN) | payer OTHER ==
[~2022-01-09 15:03] MED LIST: ACETAMINOPHEN 325 MG TABLET (FP) PO PRN; LOPERAMIDE HCL 2 MG CAPSULE PO PRN; MAGNESIUM CITRATE 300 ML BOTTLE PO PRN; MAGNESIUM HYDROX 2400MG/30ML ORAL SUSPENSION 30 ML CUP PO PRN; NICOTINE 10 MG CARTRIDGE (INHALER) IH PRN; P-EPHED 60MG/TRIPROLIDI 2.5MG TABLET PO PRN; guaiFENesin 200 MG/10 ML 10 ML UNIT-DOSE CUPS PO PRN
[2022-01-09] MEDS: hydrOXYzine PAMOATE 25 MG CAPSULE (FP) PO SCH ×3 (16:42→21:57)
[2022-01-09] MEDS: ARTIFICIAL TEARS (POLYVINYL ALCOHOL) OPTH DROPS OU SCH ×2 (16:42→21:56)
[2022-01-09] MEDS: MELATONIN 5 MG TABLETS PO SCH (21:56)
[2022-01-09] MEDS: THIAMINE HCL 100 MG TABLET (FP) PO SCH (21:56)
[2022-01-10] MEDS: COLLOIDAL OATMEAL 1 BAR EACH TP PRN (06:32)
[2022-01-10] MEDS: hydrOXYzine PAMOATE 25 MG CAPSULE (FP) PO SCH ×5 (06:33→21:26)
[2022-01-10] MEDS: ARTIFICIAL TEARS (POLYVINYL ALCOHOL) OPTH DROPS OU SCH ×3 (06:33→21:25)
[2022-01-10] MEDS: PRENATAL VITAMINS W/ FOLIC ACID TABLET (FP) PO SCH (10:13)
[2022-01-10] MEDS: NICOTINE 7 MG/24 HOURS TOPICAL PATCH TD SCH (10:14)
[2022-01-10] MEDS: MINERAL OIL/PETROLAT/WATER TOPICAL CREAM 113 GM JAR TP SCH (10:14)
[2022-01-10] MEDS: BETAMETHASONE VALER 0.1% OINT 15 GM TUBE TP SCH ×2 (10:15→21:25)
[2022-01-10 11:45] LABS: HIV INTERPRETATION NEGATIVE (NEGATIVE)
[2022-01-10] MEDS: MELATONIN 5 MG TABLETS PO SCH (21:25)
[2022-01-10] MEDS: THIAMINE HCL 100 MG TABLET (FP) PO SCH (21:25)
[2022-01-11] MEDS: hydrOXYzine PAMOATE 25 MG CAPSULE (FP) PO SCH ×2 (06:09→10:43)
[2022-01-11] MEDS: ARTIFICIAL TEARS (POLYVINYL ALCOHOL) OPTH DROPS OU SCH ×3 (06:42→21:26)
[2022-01-11] MEDS ORDERED: hydrOXYzine PAMOATE 25 MG CAPSULE (FP) PO PRN (10:01)
[2022-01-11] MEDS: MINERAL OIL/PETROLAT/WATER TOPICAL CREAM 113 GM JAR TP SCH (10:19)
[2022-01-11] MEDS: NICOTINE 7 MG/24 HOURS TOPICAL PATCH TD SCH (10:19)
[2022-01-11] MEDS: PRENATAL VITAMINS W/ FOLIC ACID TABLET (FP) PO SCH (10:19)
[2022-01-11] MEDS: BETAMETHASONE VALER 0.1% OINT 15 GM TUBE TP SCH ×2 (10:19→21:26)
[2022-01-11 13:19] LABS: URINE APPEARANCE CLEAR; URINE BILIRUBIN NEGATIVE (NEGATIVE); URINE COLOR YELLOW; URINE GLUCOSE (UA) NEGATIVE (NEGATIVE); URINE KETONE NEGATIVE (NEGATIVE); URINE LEUK ESTERASE NEGATIVE (NEGATIVE); URINE NITRITE NEGATIVE (NEGATIVE); URINE PROTEIN NEGATIVE (NEGATIVE); URINE UROBILINOGEN 0.2 mg/dL (0.2-1.0)
[2022-01-11] MEDS: THIAMINE HCL 100 MG TABLET (FP) PO SCH (21:23)
[2022-01-11] MEDS: MAG HYDROX/AL HYDROX/SIMETH 30 ML UNIT-DOSE CUP PO PRN (21:24)
[2022-01-11] MEDS: MELATONIN 5 MG TABLETS PO SCH (21:26)
[2022-01-12] MEDS: ARTIFICIAL TEARS (POLYVINYL ALCOHOL) OPTH DROPS OU SCH ×3 (06:41→21:35)
[2022-01-12] MEDS: PRENATAL VITAMINS W/ FOLIC ACID TABLET (FP) PO SCH (10:34)
[2022-01-12] MEDS: MINERAL OIL/PETROLAT/WATER TOPICAL CREAM 113 GM JAR TP SCH (10:35)
[2022-01-12] MEDS: BETAMETHASONE VALER 0.1% OINT 15 GM TUBE TP SCH ×2 (10:35→21:36)
[2022-01-12] MEDS: NICOTINE 7 MG/24 HOURS TOPICAL PATCH TD SCH (10:35)
[2022-01-12] MEDS: THIAMINE HCL 100 MG TABLET (FP) PO SCH (21:36)
[2022-01-12] MEDS: MAG HYDROX/AL HYDROX/SIMETH 30 ML UNIT-DOSE CUP PO PRN (21:37)
[2022-01-12] MEDS: MELATONIN 5 MG TABLETS PO SCH (21:37)
[2022-01-13] MEDS: ARTIFICIAL TEARS (POLYVINYL ALCOHOL) OPTH DROPS OU SCH ×3 (06:27→21:57)
[2022-01-13] MEDS: NICOTINE 7 MG/24 HOURS TOPICAL PATCH TD SCH (10:31)
[2022-01-13] MEDS: PRENATAL VITAMINS W/ FOLIC ACID TABLET (FP) PO SCH (10:31)
[2022-01-13] MEDS: MINERAL OIL/PETROLAT/WATER TOPICAL CREAM 113 GM JAR TP SCH (10:33)
[2022-01-13] MEDS: HYDROCORTISONE 1% TOPICAL CREAM 30 GM TUBE TP SCH ×2 (10:33→21:59)
[2022-01-13] MEDS: BETAMETHASONE VALER 0.1% OINT 15 GM TUBE TP SCH ×2 (10:34→21:59)
[2022-01-13] MEDS: THIAMINE HCL 100 MG TABLET (FP) PO SCH (21:55)
[2022-01-13] MEDS: MELATONIN 5 MG TABLETS PO SCH (21:59)
[2022-01-14] MEDS: ARTIFICIAL TEARS (POLYVINYL ALCOHOL) OPTH DROPS OU SCH ×3 (06:51→21:40)
[2022-01-14] MEDS: NICOTINE 7 MG/24 HOURS TOPICAL PATCH TD SCH (11:05)
[2022-01-14] MEDS: PRENATAL VITAMINS W/ FOLIC ACID TABLET (FP) PO SCH (11:05)
[2022-01-14] MEDS: MINERAL OIL/PETROLAT/WATER TOPICAL CREAM 113 GM JAR TP SCH (11:06)
[2022-01-14] MEDS: BETAMETHASONE VALER 0.1% OINT 15 GM TUBE TP SCH ×2 (11:06→21:40)
[2022-01-14] MEDS: HYDROCORTISONE 1% TOPICAL CREAM 30 GM TUBE TP SCH ×2 (11:07→21:42)
[2022-01-14] MEDS: THIAMINE HCL 100 MG TABLET (FP) PO SCH (21:40)
[2022-01-14] MEDS: MELATONIN 5 MG TABLETS PO SCH (21:40)
[2022-01-14] MEDS: COLLOIDAL OATMEAL 1 BAR EACH TP PRN (23:18)
[2022-01-15] MEDS: ARTIFICIAL TEARS (POLYVINYL ALCOHOL) OPTH DROPS OU SCH ×3 (07:14→22:02)
[2022-01-15] MEDS: BETAMETHASONE VALER 0.1% OINT 15 GM TUBE TP SCH ×2 (10:36→22:03)
[2022-01-15] MEDS: PRENATAL VITAMINS W/ FOLIC ACID TABLET (FP) PO SCH (10:37)
[2022-01-15] MEDS: HYDROCORTISONE 1% TOPICAL CREAM 30 GM TUBE TP SCH ×2 (10:38→22:02)
[2022-01-15] MEDS: MINERAL OIL/PETROLAT/WATER TOPICAL CREAM 113 GM JAR TP SCH (10:38)
[2022-01-15] MEDS: NICOTINE 7 MG/24 HOURS TOPICAL PATCH TD SCH (10:39)
[2022-01-15] MEDS: IBUPROFEN 400 MG TABLET (FP) PO PRN (17:23)
[2022-01-15] MEDS: MELATONIN 5 MG TABLETS PO SCH (22:03)
[2022-01-15] MEDS: THIAMINE HCL 100 MG TABLET (FP) PO SCH (22:03)
[2022-01-16] MEDS: ARTIFICIAL TEARS (POLYVINYL ALCOHOL) OPTH DROPS OU SCH ×3 (06:30→22:00)
[2022-01-16] MEDS: NICOTINE 7 MG/24 HOURS TOPICAL PATCH TD SCH (10:32)
[2022-01-16] MEDS: PRENATAL VITAMINS W/ FOLIC ACID TABLET (FP) PO SCH (10:32)
[2022-01-16] MEDS: MINERAL OIL/PETROLAT/WATER TOPICAL CREAM 113 GM JAR TP SCH (10:33)
[2022-01-16] MEDS: HYDROCORTISONE 1% TOPICAL CREAM 30 GM TUBE TP SCH (10:35)
[2022-01-16] MEDS: BETAMETHASONE VALER 0.1% OINT 15 GM TUBE TP SCH ×2 (10:35→21:45)
[2022-01-16] MEDS: HYDROCORTISONE 1% TOPICAL OINT 30 GM TUBE TP SCH ×2 (13:08→21:44)
[2022-01-16] MEDS: THIAMINE HCL 100 MG TABLET (FP) PO SCH (21:44)
[2022-01-16] MEDS: MELATONIN 5 MG TABLETS PO SCH (21:45)
[2022-01-17] MEDS: IBUPROFEN 400 MG TABLET (FP) PO PRN (00:10)
[2022-01-17] MEDS: ARTIFICIAL TEARS (POLYVINYL ALCOHOL) OPTH DROPS OU SCH ×3 (06:45→21:37)
[2022-01-17] MEDS: MINERAL OIL/PETROLAT/WATER TOPICAL CREAM 113 GM JAR TP SCH (10:52)
[2022-01-17] MEDS: BETAMETHASONE VALER 0.1% OINT 15 GM TUBE TP SCH ×2 (10:52→21:37)
[2022-01-17] MEDS: HYDROCORTISONE 1% TOPICAL OINT 30 GM TUBE TP SCH ×2 (10:52→21:57)
[2022-01-17] MEDS: NICOTINE 7 MG/24 HOURS TOPICAL PATCH TD SCH (10:52)
[2022-01-17] MEDS: PRENATAL VITAMINS W/ FOLIC ACID TABLET (FP) PO SCH (10:52)
[2022-01-17] MEDS: MAG HYDROX/AL HYDROX/SIMETH 30 ML UNIT-DOSE CUP PO PRN (15:30)
[2022-01-17] MEDS: THIAMINE HCL 100 MG TABLET (FP) PO SCH (21:37)
[2022-01-17] MEDS: MELATONIN 5 MG TABLETS PO SCH (21:37)
[2022-01-18] MEDS: ARTIFICIAL TEARS (POLYVINYL ALCOHOL) OPTH DROPS OU SCH ×3 (06:43→21:37)
[2022-01-18] MEDS: NICOTINE 7 MG/24 HOURS TOPICAL PATCH TD SCH (10:25)
[2022-01-18] MEDS: PRENATAL VITAMINS W/ FOLIC ACID TABLET (FP) PO SCH (10:25)
[2022-01-18] MEDS: BETAMETHASONE VALER 0.1% OINT 15 GM TUBE TP SCH ×2 (10:26→21:20)
[2022-01-18] MEDS: MINERAL OIL/PETROLAT/WATER TOPICAL CREAM 113 GM JAR TP SCH (10:26)
[2022-01-18] MEDS: HYDROCORTISONE 1% TOPICAL OINT 30 GM TUBE TP SCH ×2 (10:26→21:19)
[2022-01-18] MEDS: MAG HYDROX/AL HYDROX/SIMETH 30 ML UNIT-DOSE CUP PO PRN (19:04)
[2022-01-18] MEDS: THIAMINE HCL 100 MG TABLET (FP) PO SCH (21:19)
[2022-01-18] MEDS: MELATONIN 5 MG TABLETS PO SCH (21:20)
[2022-01-19] MEDS: ARTIFICIAL TEARS (POLYVINYL ALCOHOL) OPTH DROPS OU SCH ×3 (06:12→21:54)
[2022-01-19] MEDS: PRENATAL VITAMINS W/ FOLIC ACID TABLET (FP) PO SCH (10:15)
[2022-01-19] MEDS: NICOTINE 7 MG/24 HOURS TOPICAL PATCH TD SCH (10:16)
[2022-01-19] MEDS: HYDROCORTISONE 1% TOPICAL OINT 30 GM TUBE TP SCH ×2 (10:16→21:23)
[2022-01-19] MEDS: BETAMETHASONE VALER 0.1% OINT 15 GM TUBE TP SCH ×2 (10:17→21:23)
[2022-01-19] MEDS: MINERAL OIL/PETROLAT/WATER TOPICAL CREAM 113 GM JAR TP SCH (10:17)
[2022-01-19] MEDS: THIAMINE HCL 100 MG TABLET (FP) PO SCH (21:23)
[2022-01-19] MEDS: MELATONIN 5 MG TABLETS PO SCH (21:23)
[2022-01-20] MEDS: ARTIFICIAL TEARS (POLYVINYL ALCOHOL) OPTH DROPS OU SCH ×3 (07:06→21:56)
[2022-01-20] MEDS: PRENATAL VITAMINS W/ FOLIC ACID TABLET (FP) PO SCH (10:15)
[2022-01-20] MEDS: MINERAL OIL/PETROLAT/WATER TOPICAL CREAM 113 GM JAR TP SCH (10:16)
[2022-01-20] MEDS: NICOTINE 7 MG/24 HOURS TOPICAL PATCH TD SCH (10:17)
[2022-01-20] MEDS: BETAMETHASONE VALER 0.1% OINT 15 GM TUBE TP SCH ×2 (10:18→21:56)
[2022-01-20] MEDS: HYDROCORTISONE 1% TOPICAL OINT 30 GM TUBE TP SCH ×2 (10:18→21:56)
[2022-01-20] MEDS: THIAMINE HCL 100 MG TABLET (FP) PO SCH (21:52)
[2022-01-20] MEDS: MELATONIN 5 MG TABLETS PO SCH (21:55)
[2022-01-21] MEDS: ARTIFICIAL TEARS (POLYVINYL ALCOHOL) OPTH DROPS OU SCH ×3 (06:27→21:42)
[2022-01-21] MEDS: PRENATAL VITAMINS W/ FOLIC ACID TABLET (FP) PO SCH (09:58)
[2022-01-21] MEDS: MINERAL OIL/PETROLAT/WATER TOPICAL CREAM 113 GM JAR TP SCH (09:59)
[2022-01-21] MEDS: BETAMETHASONE VALER 0.1% OINT 15 GM TUBE TP SCH ×2 (09:59→21:42)
[2022-01-21] MEDS: NICOTINE 7 MG/24 HOURS TOPICAL PATCH TD SCH (09:59)
[2022-01-21] MEDS: HYDROCORTISONE 1% TOPICAL OINT 30 GM TUBE TP SCH ×2 (09:59→22:02)
[2022-01-21] MEDS: THIAMINE HCL 100 MG TABLET (FP) PO SCH (21:42)
[2022-01-21] MEDS: MELATONIN 5 MG TABLETS PO SCH (21:42)
[2022-01-21] MEDS: COLLOIDAL OATMEAL 1 BAR EACH TP PRN (21:43)
[2022-01-22] MEDS: ARTIFICIAL TEARS (POLYVINYL ALCOHOL) OPTH DROPS OU SCH ×3 (06:45→21:46)
[2022-01-22] MEDS: NICOTINE 7 MG/24 HOURS TOPICAL PATCH TD SCH (10:12)
[2022-01-22] MEDS: HYDROCORTISONE 1% TOPICAL OINT 30 GM TUBE TP SCH ×2 (10:12→21:46)
[2022-01-22] MEDS: MINERAL OIL/PETROLAT/WATER TOPICAL CREAM 113 GM JAR TP SCH (10:12)
[2022-01-22] MEDS: PRENATAL VITAMINS W/ FOLIC ACID TABLET (FP) PO SCH (10:13)
[2022-01-22] MEDS: BETAMETHASONE VALER 0.1% OINT 15 GM TUBE TP SCH ×2 (10:13→21:46)
[2022-01-22] MEDS: THIAMINE HCL 100 MG TABLET (FP) PO SCH (21:45)
[2022-01-22] MEDS: MELATONIN 5 MG TABLETS PO SCH (21:46)
[2022-01-23] MEDS: ARTIFICIAL TEARS (POLYVINYL ALCOHOL) OPTH DROPS OU SCH (06:30)
[2022-01-23 07:21] VITALS: BP 113/82; PULSE 67; TEMP 97.9
[2022-01-23] MEDS: MINERAL OIL/PETROLAT/WATER TOPICAL CREAM 113 GM JAR TP SCH (09:29)
[2022-01-23] MEDS: HYDROCORTISONE 1% TOPICAL OINT 30 GM TUBE TP SCH (09:30)
[2022-01-23] MEDS: NICOTINE 7 MG/24 HOURS TOPICAL PATCH TD SCH (09:30)
[2022-01-23] MEDS: BETAMETHASONE VALER 0.1% OINT 15 GM TUBE TP SCH (09:30)
[2022-01-23] MEDS: PRENATAL VITAMINS W/ FOLIC ACID TABLET (FP) PO SCH (09:30)
== END 2022-01-23 09:32 | disposition home or self-care (01) | DRG 772 ==
LOC: YASAS 15:03 → Y5N 15:04
PROVIDERS: ADMIT Allergy & Immunology; ATTEND Allergy & Immunology
PROC: HZ42ZZZ Group Counseling for Substance Abuse Treatment, Cognitive-Behavioral (ICD-10-PCS; principal; 2022-01-09)
DX: F10.20 Alcohol dependence, uncomplicated (principal); F14.20 Cocaine dependence, uncomplicated; F32.A Depression, unspecified; L85.3 Xerosis cutis; H04.123 Dry eye syndrome of bilateral lacrimal glands; Z87.828 Personal history of other (healed) physical injury and trauma; Z86.19 Personal history of other infectious and parasitic diseases
CPT/HCPCS: 36415; 81003; 87086; 87389; C9803-CS; U0003; U0005